=== PATIENT | female | born 1950 | race Caucasian/White ===

== ENCOUNTER 2016-07-27 09:34 | Emergency (ER) | payer OTHER, MEDICARE ==
[2016-07-27 10:38] VITALS: BP 145/72
--- NOTE | 2016-07-27 11:01 | UC ---
Complaint Female HPI - HPI Summary HPI Summary: 65 year old female with complaints of urgency, frequency and burning with urination x 3 days. Her symptoms were mild at the beginning, she increased her fluids and started drinking cranberry today her symptoms are worse. Denies nausea or vomiting, Denies fever or chills - History Of Current Complaint Chief Complaint: UCGU Stated Complaint: URINARY ISSUE Time Seen by Provider: 07/27/16 10:31 Hx Obtained From: Patient Hx Last Menstrual Period: menapause ?: No Onset/Duration: Gradual Onset, Lasting Days - 3, Still Present Timing: Constant Severity Initially: Mild Severity Currently: Moderate Pain Scale Used: 0-10 Numeric Character: Burning Aggravating Factor(s): Urination Associated Signs And Symptoms: Positive: Back Pain - low center. Negative: Fever, Vaginal Bleeding/Discharge, Vaginal Discharge, Nausea, Vomiting(# Of Episodes =), Genital Swelling, Genital Blisters Related Hx: Similar Episode/Dx as: - UTI 1 - 2 years ago - Risk Factors Ectopic Risk Factor: Negative Ovarian Torsion Risk Factor: Negative - Allergies/Home Medications Allergies/Adverse Reactions: Allergies Allergy/AdvReac Type Severity Reaction Status Date / Time Morphine AdvReac Intermediate Vomiting Verified 03/16/16 10:53 Ibuprofen AdvReac Unknown See Comment Verified 03/16/16 10:53 PMH/Surg Hx/FS Hx/Imm Hx Previously Healthy: Yes Endocrine History Of: Denies: Diabetes, Thyroid Disease Cardiovascular History Of: Reports: Cardiac Disorders - CAD, stent 06' Denies: Hypertension Respiratory History Of: Denies: COPD, Asthma GI/ History Of: Denies: Ulcer - Surgical History Surgical History: Yes Surgery Procedure, Year, and Place: ORTHOPEDIC SURGERY OF UNKNOWN NAME TO [facility] - Family History Known Family History: Positive: Hypertension Negative: Diabetes Family History: positive for hypertension on mother side - Social History Occupation: Retired Lives: With Family Alcohol Use: None Substance Use Type: None Smoking Status (MU): Former Smoker - Immunization History Most Recent Influenza Vaccination: utd Most Recent Tetanus Shot: utd Most Recent Pneumonia Vaccination: nopt sure Review of Systems Constitutional: Negative Skin: Negative Eyes: Negative ENT: Negative Respiratory: Negative Cardiovascular: Negative Gastrointestinal: Negative Genitourinary: Dysuria, Frequency, Urgency Motor: Negative Neurovascular: Negative Musculoskeletal: Negative Neurological: Negative Psychological: Negative All Other Systems Reviewed And Are Negative: Yes Physical Exam Triage Information Reviewed: Yes Appearance: Well-Appearing, No Pain Distress, Well-Nourished Vital Signs: Initial Vital Signs Temp 97.3 F 07/27/16 10:32 Pulse 74 07/27/16 10:32 Resp 16 07/27/16 10:32 BP 145/72 07/27/16 10:32 Pulse Ox 100 07/27/16 10:32 Vital Signs Reviewed: Yes Eyes: Positive: Conjunctiva Clear. Negative: Discharge ENT: Positive: Hearing grossly normal, Pharynx normal, Nasal congestion - reports x 4 days, TMs normal, Other: - no sinus pain or pressure with palpation. Negative: Nasal drainage Neck: Positive: Supple, Nontender, No Lymphadenopathy Respiratory: Positive: Lungs clear, Normal breath sounds Cardiovascular: Positive: RRR, No Murmur Abdomen Description: Positive: Nontender, No Organomegaly, Soft. Negative: CVA Tenderness (R), CVA Tenderness (L) Bowel Sounds: Positive: Present Musculoskeletal: Positive: Strength Intact, ROM Intact Neurological: Positive: Alert, Muscle Tone Normal Psychological: Positive: Normal Response To Family - granddaughter, Age Appropriate Behavior - pleasant and cooperative Skin: Negative: rashes, breakdown Complaint Female Dx - Course Course Of Treatment: UA -. Education about UTI symptoms and treatment. Treatment plan. And follow up plan established - Differential Dx/Diagnosis Differential Diagnosis/HQI/PQRI: Urinary Tract Infection Provider Diagnoses: UTI. Upper Respiratory Infection Discharge - Discharge Plan Condition: Stable Disposition: HOME Prescriptions: Ciprofloxacin TAB* [Cipro Tab*] 500 mg PO BID #14 tab Patient Education Materials: Urinary Tract Infection in Women (ED), Upper Respiratory Infection (ED), Ciprofloxacin (By mouth)
== END 2016-07-27 11:12 | disposition home or self-care (01) ==
LOC: UCEAST 09:34
DX: N39.0 Urinary tract infection, site not specified (principal); B96.89 Other specified bacterial agents as the cause of diseases classified elsewhere; J06.9 Acute upper respiratory infection, unspecified
CPT/HCPCS: 81002; 87077; 87086; 87186; 99212; G0463

== ENCOUNTER 2016-10-12 10:01 | Emergency (ER) | payer OTHER, MEDICARE ==
[2016-10-12 10:18] VITALS: BP 129/69
--- NOTE | 2016-10-12 10:45 | UC ---
Eye Complaint HPI - HPI Summary HPI Summary: Woke up yesterday with bilateral eye redness and drainage. States that her allergies have been worse with nasal congestion and drainage. Denies any fever or recent illness. No recent contact with sick individuals. - History of Current Complaint Chief Complaint: UCEye Stated Complaint: EYE COMPLAINT Time Seen by Provider: 10/12/16 10:23 Hx Obtained From: Patient Hx Last Menstrual Period: menapause Onset/Duration: Sudden Onset Severity Initially: Moderate Severity Currently: Moderate Location of Injury: Conjunctiva Aggravating Factor(s): Nothing Alleviating Factor(s): Nothing Associated Signs And Symptoms: Positive: Drainage (Purulent). Negative: Photophobia, Vision Impairment Bilateral, Fever Related History: Other - Worsening allergies - Risk Factors Penetrating Injury Risk Factor: Negative Globe Rupture Risk Factors: Negative Acute Glaucoma Risk Factors: Negative Optic Artery Occlusion Risk Factors: Negative - Allergies/Home Medications Allergies/Adverse Reactions: Allergies Allergy/AdvReac Type Severity Reaction Status Date / Time Morphine AdvReac Intermediate Vomiting Verified 10/12/16 10:25 Ibuprofen AdvReac Unknown See Comment Verified 10/12/16 10:25 Home Medications: Home Medications Fexofenadine (NF) [Nancy 180 (NF)] 180 mg PO DAILY 10/12/16 [History Confirmed 10/12/16] PMH/Surg Hx/FS Hx/Imm Hx Previously Healthy: Yes - Has had worsening seasonal allergies Endocrine History Of: Denies: Diabetes, Thyroid Disease Cardiovascular History Of: Reports: Cardiac Disorders - CAD, stent 06' Denies: Hypertension Respiratory History Of: Denies: COPD, Asthma GI/ History Of: Denies: Ulcer - Surgical History Surgical History: Yes Surgery Procedure, Year, and Place: ORTHOPEDIC SURGERY OF UNKNOWN NAME TO [facility]. gallbladder - Family History Known Family History: Positive: Hypertension Negative: Diabetes Family History: positive for hypertension on mother side - Social History Alcohol Use: None Substance Use Type: None Smoking Status (MU): Former Smoker When Did the Patient Quit Smoking/Using Tobacco: 20 years ago - Immunization History Most Recent Influenza Vaccination: utd Most Recent Tetanus Shot: utd Most Recent Pneumonia Vaccination: nopt sure Review of Systems Constitutional: Negative Skin: Negative Eyes: Drainage, Eye Redness ENT: Nasal Discharge Respiratory: Negative Cardiovascular: Negative Gastrointestinal: Negative Genitourinary: Negative Motor: Negative Neurovascular: Negative Musculoskeletal: Negative Neurological: Negative Psychological: Negative All Other Systems Reviewed And Are Negative: Yes Physical Exam Triage Information Reviewed: Yes Appearance: Well-Appearing, No Pain Distress, Well-Nourished Vital Signs: Initial Vital Signs Temp 99 F 10/12/16 10:14 Pulse 65 10/12/16 10:14 Resp 16 10/12/16 10:14 BP 129/69 10/12/16 10:14 Pulse Ox 98 10/12/16 10:14 Vital Signs Reviewed: Yes Eye Exam: Other Eyes: Positive: Conjunctiva Inflamed, Discharge - yellow, purulent ENT: Positive: Hearing grossly normal, Pharynx normal, Nasal congestion, Nasal drainage - clear, TMs normal. Negative: Pharyngeal erythema Neck exam: Normal Neck: Positive: Supple, Nontender, No Lymphadenopathy Respiratory Exam: Normal Respiratory: Positive: Chest non-tender, Lungs clear, Normal breath sounds, No respiratory distress Cardiovascular Exam: Normal Cardiovascular: Positive: RRR, No Murmur Musculoskeletal Exam: Normal Musculoskeletal: Positive: Strength Intact, ROM Intact Neurological Exam: Normal Neurological: Positive: Alert, Muscle Tone Normal Psychological Exam: Normal Psychological: Positive: Normal Response To Family Skin Exam: Normal Eye Complaint Course/Dx - Course Course Of Treatment: This is most likely an allergic conjunctivitis. She has had worsening allergies with increased nasal drainage and congestion. We have instructed her to use an [id number] steroid nasal spray and antihistamine eye drop. If her symptoms do not improve in two days, she is instructed to call back because she may need an antibiotic eye drop. - Differential Dx/Diagnosis Differential Diagnosis/HQI/PQRI: Conjunctivitis, Corneal Abrasion, Foreign Body Provider Diagnoses: Allergic Conjunctivitis Discharge - Discharge Plan Condition: Stable Disposition: HOME Patient Education Materials: Conjunctivitis (ED) Print Language: CAMBODIAN Referrals: Jessi Vigil MD [Primary Care Provider] - Additional Instructions: This is most likely an allergic conjunctivitis. Please use over the counter steroid nasal spray and antihistamine eye drops. If you do not see any improvement in 2 days, please call back.
== END 2016-10-12 10:55 | disposition home or self-care (01) ==
LOC: UCEAST 10:01
DX: H10.10 Acute atopic conjunctivitis, unspecified eye (principal); J30.2 Other seasonal allergic rhinitis; I25.10 Atherosclerotic heart disease of native coronary artery without angina pectoris; Z98.61 Coronary angioplasty status; Z87.891 Personal history of nicotine dependence
CPT/HCPCS: 99212; G0463

== ENCOUNTER 2016-10-13 11:34 | Emergency (ER) | payer OTHER, MEDICARE ==
[2016-10-13 12:25] VITALS: BP 104/35
--- NOTE | 2016-10-27 13:52 | UC ---
Nathan Welch SooYoung, scribed for Micaela Becerra DO on 10/13/16 at 1249 . Eye Complaint HPI - HPI Summary HPI Summary: A 66 y/o F presents to [facility] with worsening, bilat erythema of sclera onset two days ago. New erythema and swelling of skin around L eye onset this AM. Pt rates pain as 3 out of 10. No muscular eye pain, no pain when moving eyeballs. Denies fever, vision changes, CP, SOB, n/v. Pt was seen yesterday at [facility], dx: allergic conjunctivitis. - History of Current Complaint Chief Complaint: Eye Stated Complaint: POSSIBLE PINK EYE Time Seen by Provider: 10/13/16 12:31 Hx Obtained From: Patient Hx Last Menstrual Period: menapause Onset/Duration: Lasting Days, Still Present Timing: Constant Severity Initially: Mild Severity Currently: Mild Pain Intensity: 3 Pain Scale Used: 0-10 Numeric Location of Injury: Conjunctiva, Eye Lid (lower), Eye Lid (upper), Periorbital Associated Signs And Symptoms: Positive: Swelling - Allergies/Home Medications Allergies/Adverse Reactions: Allergies Allergy/AdvReac Type Severity Reaction Status Date / Time Morphine AdvReac Intermediate Vomiting Verified 10/12/16 10:25 Ibuprofen AdvReac Unknown See Comment Verified 10/12/16 10:25 PMH/Surg Hx/FS Hx/Imm Hx Endocrine History Of: Denies: Diabetes, Thyroid Disease Cardiovascular History Of: Reports: Cardiac Disorders - CAD, stent 06' Denies: Hypertension Respiratory History Of: Denies: COPD, Asthma GI/ History Of: Denies: Ulcer - Surgical History Surgical History: Yes Surgery Procedure, Year, and Place: ORTHOPEDIC SURGERY OF UNKNOWN NAME TO [facility] left ankle. gallbladder - Family History Known Family History: Positive: Hypertension Negative: Diabetes Family History: positive for hypertension on mother side - Social History Occupation: Disabled Lives: With Family Alcohol Use: None Substance Use Type: None Smoking Status (MU): Former Smoker When Did the Patient Quit Smoking/Using Tobacco: 20 years ago - Immunization History Most Recent Influenza Vaccination: utd Most Recent Tetanus Shot: utd Most Recent Pneumonia Vaccination: nopt sure Review of Systems Constitutional: Negative Skin: Other - pos: erythema and edema of skin surrounding L eye Eyes: Drainage, Eye Redness, Other - pos: eye pain and swelling ENT: Negative Respiratory: Negative Cardiovascular: Negative Gastrointestinal: Negative Genitourinary: Negative Motor: Negative Neurovascular: Negative Musculoskeletal: Negative Neurological: Negative Psychological: Negative All Other Systems Reviewed And Are Negative: Yes Physical Exam Triage Information Reviewed: Yes Appearance: Well-Appearing, No Pain Distress, Well-Nourished Vital Signs: Initial Vital Signs Temp 98.2 F 10/13/16 12:16 Pulse 54 10/13/16 12:16 Resp 18 10/13/16 12:16 BP 104/35 10/13/16 12:16 Pulse Ox 100 10/13/16 12:16 Vital Signs Reviewed: Yes Eyes: Positive: Conjunctiva Inflamed, Discharge - purulent, Other: - POS: preseptal erythema tenderness and edema around L much greater than R. NEG: ophthalmoplegia, proptosis-no swelling of the eyeball ENT: Positive: Hearing grossly normal. Negative: Muffled/hoarse voice Neck exam: Normal Neck: Positive: Supple Respiratory: Positive: Lungs clear, Normal breath sounds, No respiratory distress, No accessory muscle use Cardiovascular: Positive: RRR, No Murmur Musculoskeletal Exam: Normal Neurological: Positive: Alert, Muscle Tone Normal Psychological Exam: Normal Psychological: Positive: Age Appropriate Behavior Skin Exam: Normal, Other - pos: warm, dry, nml color Eye Complaint Course/Dx - Differential Dx/Diagnosis Differential Diagnosis/HQI/PQRI: Conjunctivitis, Periorbital Cellulitis, Other - allergic conjunctivitis Provider Diagnoses: periorbital cellulitis, conjunctivitis Discharge - Discharge Plan Condition: Stable Disposition: HOME Prescriptions: Clindamycin Cap(NF) [Cleocin 300 mg Cap(NF)] 300 mg PO TID #21 cap Tobramycin/Dexameth OPTH.SUSP* [Tobradex 0.3-0.1%*] 1 drop BOTH EYES Q4H #1 btl Patient Education Materials: Periorbital Cellulitis in Adults (ED), Conjunctivitis (ED) Referrals: Jessi Vigil MD [Primary Care Provider] - (Follow up in tomorrow for re -evaluation. This follow up visit is important, we want to know that you are improving. If you can not get in with your PCP, return here for re-evaluation. ) Additional Instructions: USE EYE DROPS DIRECTED. ANTIBIOTIC THERAPY: You have been given an antibiotic prescription. It's important that you take all the medication, unless instructed otherwise by your physician. Failure to complete the entire course can result in relapse of your condition. Common side effects of antibiotics include nausea, intestinal cramping, or diarrhea. Women may develop vaginal yeast infections, and babies can get yeast (thrush) in the mouth following the use of antibiotics. Contact your physician if you develop significant side effects from this medication. Allergy to this antibiotic can result in hives, wheezing, faintness, or itching. If symptoms of allergy occur, stop the medication and call the doctor. ANY TIME YOU TAKE AN ANTIBIOTIC, IT IS IMPORTANT TO REPLENISH THE BODY'S BALANCE OF "GOOD" BACTERIA BY EATING HIGH QUALITY CULTURED FOOD SUCH YOGURT, SAURKRAUT OR SONIDO CHI AND/OR TAKING A PROBIOTIC SUPPLEMENT. Follow up in day for re-evaluation. This follow up visit is important, we want to know that you are improving. If you can not get in with your PCP, return here for re-evaluation. The documentation as recorded by the Nathan martines SooYoung accurately reflects the service I personally performed and the decisions made by me, Micaela Becerra DO.
== END 2016-10-13 13:24 | disposition home or self-care (01) ==
LOC: UCEAST 11:34
DX: L03.213 Periorbital cellulitis (principal); H10.30 Unspecified acute conjunctivitis, unspecified eye; I25.10 Atherosclerotic heart disease of native coronary artery without angina pectoris; Z95.5 Presence of coronary angioplasty implant and graft; Z90.49 Acquired absence of other specified parts of digestive tract; Z88.6 Allergy status to analgesic agent; Z88.5 Allergy status to narcotic agent; Z87.891 Personal history of nicotine dependence
CPT/HCPCS: 99212; G0463

== ENCOUNTER 2016-12-24 15:16 | Emergency (ER) | payer MEDICARE ==
[2016-12-24 16:26] VITALS: BP 117/41
--- NOTE | 2016-12-24 16:58 | UC ---
Throat Pain/Nasal Rasta HPI - HPI Summary HPI Summary: Patient presents with complaints of increased post nasal drip, which she states is what occurs when she is getting a sinus infection, and as a result is nauseous. She states this typically happens at least once a year. She complains of facial pressure behind her eyes. She had difficulty breathing through her nose, and has a known deviated septum, but does not want to have sinus surgery. Denies fever, vomiting, headache. - History of Current Complaint Chief Complaint: UCRespiratory Stated Complaint: SINUS COMPLAINT Time Seen by Provider: 12/24/16 16:37 Hx Obtained From: Patient Hx Last Menstrual Period: post menopausal ?: No Onset/Duration: Gradual Onset, Lasting Days Severity: Moderate Cough: None - Epiglottits Risk Factors Epiglottis Risk Factors: Negative - Allergies/Home Medications Allergies/Adverse Reactions: Allergies Allergy/AdvReac Type Severity Reaction Status Date / Time Morphine AdvReac Intermediate Vomiting Verified 12/24/16 16:27 Ibuprofen AdvReac Unknown See Comment Verified 12/24/16 16:27 Home Medications: Home Medications Calcium [Oyster-Kirill 500] 500 mg PO DAILY 12/24/16 [History Confirmed 12/24/16] PMH/Surg Hx/FS Hx/Imm Hx Previously Healthy: Yes Endocrine History: Other - deviated septum sinusitis Other Endocrine History: deviates septum - Surgical History Surgical History: Yes Surgery Procedure, Year, and Place: ORTHOPEDIC SURGERY OF UNKNOWN NAME TO [facility] AND [facility]EMUR left ankle. gallbladder - Family History Known Family History: Positive: Hypertension Negative: Diabetes Family History: positive for hypertension on mother side - Social History Alcohol Use: None Substance Use Type: None Smoking Status (MU): Former Smoker When Did the Patient Quit Smoking/Using Tobacco: 20 years ago - Immunization History Most Recent Influenza Vaccination: utd Most Recent Tetanus Shot: utd Most Recent Pneumonia Vaccination: nopt sure Review of Systems ENT: Other - post nasal drip Gastrointestinal: Other - nausea Musculoskeletal: Other: - sinus pressure All Other Systems Reviewed And Are Negative: Yes Physical Exam Triage Information Reviewed: Yes Appearance: Well-Appearing Vital Signs: Initial Vital Signs Temp 97.4 F 12/24/16 16:23 Pulse 79 12/24/16 16:23 Resp 18 12/24/16 16:23 BP 117/41 12/24/16 16:23 Pulse Ox 98 12/24/16 16:23 Vital Signs Reviewed: Yes Eye Exam: Normal ENT: Positive: Other: - severe rightward deviated septum, turbinates pale, edematous. maxillary tenderness on palpation. +thick white pnd on posterior pharyngeal wall. -exudate noted. uvula raises midline on phonation. Neck exam: Normal Respiratory Exam: Normal Cardiovascular Exam: Normal Skin Exam: Normal Throat Pain/Nasal Course/Dx - Course Course Of Treatment: Patient presents with symptoms that are indicitive of her sinus infections with associated nausea. Rx Augmentin 500 mg po bid x 10 days, and zofran for nausea. Recommend follow up with ent for deviated septum. - Differential Dx/Diagnosis Differential Diagnosis/HQI/PQRI: Sinusitis Provider Diagnoses: sinusitis Discharge - Discharge Plan Condition: Stable Disposition: HOME Prescriptions: Amoxicillin/Clavulanate TAB* [Augmentin TAB 500 mg*] 500 mg PO BID #20 tab Ondansetron TAB* [Zofran 4 MG Tab*] 4 mg PO Q6H PRN #14 tab PRN Reason: Nausea Patient Education Materials: Sinusitis (ED) Referrals: Jessi Vigil MD [Primary Care Provider] - Sunny Lay MD [Medical Doctor] -
== END 2016-12-24 16:53 | disposition home or self-care (01) ==
LOC: UCEAST 15:16
DX: J32.9 Chronic sinusitis, unspecified (principal); J34.2 Deviated nasal septum; Z87.891 Personal history of nicotine dependence
CPT/HCPCS: 99201; G0463

== ENCOUNTER 2017-05-15 14:50 | Emergency (ER) | payer MEDICARE ==
[2017-05-15 15:54] VITALS: BP 105/61
--- NOTE | 2017-05-15 16:04 | UC ---
Respiratory Complaint HPI - HPI Summary HPI Summary: 66 year old female presents with complains of intermittent cough. - History of Current Complaint Chief Complaint: UCRespiratory Stated Complaint: cough Time Seen by Provider: 05/15/17 15:59 Hx Obtained From: Patient Hx Last Menstrual Period: post menopausal Onset/Duration: Sudden Onset Severity Initially: Moderate Severity Currently: Moderate Pain Scale Used: 0-10 Numeric - 0 - Allergies/Home Medications Allergies/Adverse Reactions: Allergies Allergy/AdvReac Type Severity Reaction Status Date / Time Morphine AdvReac Intermediate Vomiting Verified 12/24/16 16:27 Ibuprofen AdvReac Unknown See Comment Verified 12/24/16 16:27 PMH/Surg Hx/FS Hx/Imm Hx Previously Healthy: Yes - Surgical History Surgical History: Yes Surgery Procedure, Year, and Place: ORTHOPEDIC SURGERY OF UNKNOWN NAME TO [facility] AND FEMUR left ankle. gallbladder - Family History Known Family History: Positive: Hypertension Negative: Diabetes Family History: positive for hypertension on mother side - Social History Alcohol Use: None Substance Use Type: None Smoking Status (MU): Former Smoker When Did the Patient Quit Smoking/Using Tobacco: 20 years ago - Immunization History Most Recent Influenza Vaccination: utd Most Recent Tetanus Shot: utd Most Recent Pneumonia Vaccination: nopt sure Review of Systems Constitutional: Negative Skin: Negative Eyes: Negative ENT: Nasal Discharge Respiratory: Cough Cardiovascular: Negative Gastrointestinal: Negative Genitourinary: Negative Motor: Negative Neurovascular: Negative Musculoskeletal: Negative Neurological: Negative Psychological: Negative All Other Systems Reviewed And Are Negative: Yes Physical Exam Triage Information Reviewed: Yes Vital Signs: Initial Vital Signs Temp 35.5 C 05/15/17 15:45 Pulse 102 05/15/17 15:45 Resp 16 05/15/17 15:45 BP 105/61 05/15/17 15:45 Pulse Ox 100 05/15/17 15:45 Vital Signs Reviewed: Yes Eye Exam: Normal ENT: Positive: Pharyngeal erythema, Nasal drainage Dental Exam: Normal Neck exam: Normal Neck: Positive: 1 Cardiovascular Exam: Normal Abdominal Exam: Normal Musculoskeletal Exam: Normal Neurological Exam: Normal Psychological Exam: Normal Skin Exam: Normal UC Diagnostic Evaluation - Laboratory O2 Sat by Pulse Oximetry: 100 Respiratory Course/Dx - Differential Dx/Diagnosis Provider Diagnoses: cough. allergic rhinitis Discharge - Discharge Plan Condition: Stable Disposition: HOME Prescriptions: Amoxicillin PO (*) [Amoxicillin 500 MG CAP*] 500 mg PO TID #30 cap LoraTADine TAB(NF) [Claritin 10 MG TAB(NF)] 10 mg PO DAILY #30 tab Promethazine-Dm [Promethazine/Dextromethor 6.25-15 mg/5Ml] 1 teasp PO Q8H PRN # 120 ml PRN Reason: Cough Patient Education Materials: Acute Cough (ED) Referrals: Jessi Vigil MD [Primary Care Provider] -
== END 2017-05-15 16:11 | disposition home or self-care (01) ==
LOC: UCEAST 14:50
DX: R05 Cough (principal); J30.9 Allergic rhinitis, unspecified; Z88.6 Allergy status to analgesic agent
CPT/HCPCS: 99212; G0463

== ENCOUNTER 2017-08-23 10:59 | Emergency (ER) | payer SELFPAY ==
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
[2017-08-23 13:52] VITALS: BP 96/47
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
== END 2017-08-23 14:03 | disposition home or self-care (01) ==
LOC: UCEAST 10:59
DX: M54.2 Cervicalgia (principal); M54.5 Low back pain; M93.98 Osteochondropathy, unspecified other; E78.5 Hyperlipidemia, unspecified; I11.9 Hypertensive heart disease without heart failure; F32.9 Major depressive disorder, single episode, unspecified; Z90.49 Acquired absence of other specified parts of digestive tract; Z88.6 Allergy status to analgesic agent; Z88.5 Allergy status to narcotic agent; Z87.891 Personal history of nicotine dependence
CPT/HCPCS: 71046; 72020; 72050; 72100; 99212; G0463

== ENCOUNTER 2018-05-26 14:12 | Emergency (ER) | payer MEDICARE, OTHER ==
[2018-05-26 14:20] VITALS: BP 106/45
--- NOTE | 2018-05-26 14:30 | UC ---
Respiratory Complaint HPI - HPI Summary HPI Summary: 67 yo female presents with sinus pain/pressure/congestion for the last 3 days. This morning she began to have a productive cough. She tells me that she gets bronchitis often and it gets bad "quickly". She has not taken anything OTC for her symptoms. Denies fever, chills, sore throat, SOB, chest pain. - History of Current Complaint Chief Complaint: [facility] Stated Complaint: SORE THROAT,CONGESTED Time Seen by Provider: 05/26/18 14:29 Hx Obtained From: Patient Hx Last Menstrual Period: post menopausal Onset/Duration: Sudden Onset Severity Initially: Mild Severity Currently: Moderate Pain Intensity: 5 Pain Scale Used: 0-10 Numeric - Allergies/Home Medications Allergies/Adverse Reactions: Allergies Allergy/AdvReac Type Severity Reaction Status Date / Time ibuprofen Allergy Nausea Verified 05/26/18 14:20 morphine Allergy Vomiting Verified 05/26/18 14:20 PMH/Surg Hx/FS Hx/Imm Hx - Additional Past Medical History Additional PMH: Urinary incontinence Endocrine History: Dyslipidemia Cardiovascular History: Hypertension GI/ History: Gastroesophageal Reflux Psychological History: Anxiety, Depression - Surgical History Surgical History: Yes Surgery Procedure, Year, and Place: ORTHOPEDIC SURGERY OF UNKNOWN NAME TO [facility] AND FEMUR left ankle. gallbladder - Family History Known Family History: Positive: Hypertension Negative: Diabetes Family History: positive for hypertension on mother side - Social History Alcohol Use: None Substance Use Type: None Smoking Status (MU): Former Smoker When Did the Patient Quit Smoking/Using Tobacco: 20 years ago - Immunization History Most Recent Influenza Vaccination: utd Most Recent Tetanus Shot: utd Most Recent Pneumonia Vaccination: nopt sure Review of Systems Constitutional: Negative Skin: Negative Eyes: Negative ENT: Nasal Discharge, Sinus Congestion, Sinus Pain/Tenderness Respiratory: Cough Cardiovascular: Negative Gastrointestinal: Negative Genitourinary: Negative Neurovascular: Negative Neurological: Negative Psychological: Negative All Other Systems Reviewed And Are Negative: Yes Physical Exam - Summary Physical Exam Summary: GENERAL: NAD. WDWN. No pain distress. SKIN: No rashes, sores, lesions, or open wounds. HEENT: Head: AT/NC Eyes: EOM intact. Conjunctiva clear without inflammation or discharge. Ears: Hearing grossly normal. TMs intact, no bulging, erythema, or edema. Nose: Nasal mucosa mildly swollen and erythematous with yellow/ clear discharge. TTP maxillary and frontal sinus. Positive post nasal drip Throat: Posterior oropharynx without exudates, erythema, or tonsillar enlargement. Uvula midline. NECK: Supple. Nontender. No lymphadenopathy. CHEST: CTAB. No r/r/w. No accessory muscle use. Breathing comfortably and in no distress. CV: RRR. Without m/r/g. Pulses intact. NEURO: Alert. PSYCH: Age appropriate behavior. Triage Information Reviewed: Yes Vital Signs: Initial Vital Signs Temp 99 F 05/26/18 14:16 Pulse 65 05/26/18 14:16 Resp 18 05/26/18 14:16 BP 106/45 05/26/18 14:16 Pulse Ox 100 05/26/18 14:16 Vital Signs Reviewed: Yes Diagnostic Evaluation - Laboratory O2 Sat by Pulse Oximetry: 100 Respiratory Course/Dx - Course Course Of Treatment: Sinusitis - pt is requesting to be on anbx at this time - Differential Dx/Diagnosis Provider Diagnoses: Sinusitis Discharge - Sign-Out/Discharge Documenting (check all that apply): Patient Departure All imaging exams completed and their final reports reviewed: No Studies - Discharge Plan Condition: Stable Disposition: HOME Prescriptions: Amoxicillin PO (*) [Amoxicillin 500 MG CAP*] 500 mg PO Q12H #14 cap Patient Education Materials: Sinusitis (ED) Referrals: Jessi Vigil MD [Primary Care Provider] - Additional Instructions: If you develop a fever, shortness of breath, chest pain, new or worsening symptoms - please call your PCP or go to the ED. - Billing Disposition and Condition Condition: STABLE Disposition: Home
[2018-05-26] MEDS ORDERED: Acetaminophen TAB* 325 MG PO ONE (14:33)
== END 2018-05-26 14:45 | disposition home or self-care (01) ==
LOC: UCEAST 14:12
DX: J01.90 Acute sinusitis, unspecified (principal); Z87.891 Personal history of nicotine dependence; Z88.5 Allergy status to narcotic agent
CPT/HCPCS: 99212; A9270-GY; G0463

== ENCOUNTER 2018-12-31 16:29 | Observation (INO) | payer MEDICARE ==
[2018-12-31 17:07] LABS: ABS Basophils 0.1 10^3/ul (0-0.2); ABS Eosinophils 0.5 10^3/ul (0-0.6); ABS Lymphocytes 2.2 10^3/ul (1.0-4.8); ABS Monocytes 0.9 10^3/ul (0-0.8); ABS Neutrophils 3.5 10^3/ul (1.5-7.7); Eosinophil % 6.9 %; Hematocrit 38 % (35-47); Hemoglobin 12.6 g/dL (12.0-16.0); Lymphocyte % 30.8 %; Mean Corpuscular HGB Conc 33 g/dL (31-36); Mean Corpuscular Hemoglobin 31 pg (27-31); Mean Corpuscular Volume 92 fL (80-97); Mean Platelet Volume 9.3 fL (7.4-10.4); Platelet Count 225 10^3/uL (150-450); Red Blood Count 4.13 10^6 /uL (3.70-4.87); Red Cell Distribution Width 14 % (10-15); White Blood Count 7.1 10^3/uL (3.5-10.8)
[2018-12-31 17:14] LABS: INR 0.99 (0.82-1.09)
[2018-12-31 17:28] LABS: Albumin 3.9 g/dL (3.2-5.2); Albumin/Globulin Ratio 1.3 (1-3); BUN/Creatinine Ratio 16.5 (8-20); Calcium 9.9 mg/dL (8.6-10.3); EGFR African American 80.7 (>60); EGFR Non-African American 66.7 (>60); Globulin 3.1 g/dL (2-4); Potassium 4.6 mmol/L (3.5-5.0); Total Bilirubin 0.7 mg/dL (0.2-1.0)
--- NOTE | 2018-12-31 18:01 | ED ---
HPI Chest Pain - HPI Summary HPI Summary: Pt is a 68 y/o F presenting to the ED with a chief complaint of chest pain initially onset at 1300 today when she was just sitting on the couch. She states it was sudden onset and feels like she is being punched in the chest, at a 7/10. She reports associated SOB, nausea, and RAY after taking NTG. She denies vomiting, LE edema, or use of blood thinners. She took one NTG at home, and EMS gave 3 baby aspirin and another NTG. The NTG did not help the chest pain, but instead gave her a headache. - History of Current Complaint Chief Complaint: ED[facility]hestPain[facility]I Time Seen by Provider: 12/31/18 16:56 Hx Obtained From: Patient Hx Last Menstrual Period: post menopausal Onset/Duration: Started Hours Ago, Still Present Timing: Constant, Lasting Hours Initial Severity: Severe Current Severity: Severe Pain Intensity: 7 Pain Scale Used: 0-10 Numeric Chest Pain Location: Diffuse Chest Pain Radiates: No Character: Pressure/Squeezing - like someone is punching her Aggravating Factor(s): Nothing Alleviating Factor(s): Nothing Associated Signs and Symptoms: Positive: Chest Pain, Headaches, Shortness of Breath, Nausea. Negative: Vomiting, Edema - Allergy/Home Medications Allergies/Adverse Reactions: Allergies Allergy/AdvReac Type Severity Reaction Status Date / Time ibuprofen AdvReac Nausea Verified 12/31/18 20:51 morphine AdvReac Vomiting Verified 12/31/18 20:51 PMH/Surg Hx/FS Hx/Imm Hx Previously Healthy: Yes Endocrine/Hematology History: Denies: Hx Anticoagulant Therapy, Hx Diabetes, Hx Thyroid Disease Cardiovascular History: Denies: Hx Hypertension Respiratory History: Reports: Hx Asthma Denies: Hx Chronic Obstructive Pulmonary Disease (COPD) GI History: Denies: Hx Ulcer - Surgical History Surgery Procedure, Year, and Place: ORTHOPEDIC SURGERY OF UNKNOWN NAME TO [facility]EARM AND FEMUR left ankle. gallbladder - Immunization History Date of Tetanus Vaccine: up to date per pt. Infectious Disease History: No Infectious Disease History: Denies: Hx Clostridium Difficile, Hx Hepatitis, Hx Human Immunodeficiency Virus (HIV), Hx of Known/Suspected MRSA, Hx Shingles, Hx Tuberculosis, Hx Known/ Suspected VRE, Hx Known/Suspected VRSA, History Other Infectious Disease, Traveled Outside the [place] in Last 30 Days - Family History Known Family History: Positive: Cardiac Disease, Hypertension Negative: Diabetes Family History: positive for hypertension on mother side - Social History Alcohol Use: None Hx Substance Use: No Substance Use Type: Reports: None Hx Tobacco Use: No Smoking Status (MU): Former Smoker Review of Systems Positive: Chest Pain Positive: Shortness Of Breath Positive: Nausea. Negative: Vomiting Negative: Edema Positive: Headache All Other Systems Reviewed And Are Negative: Yes Physical Exam - Summary Physical Exam Summary: Constitutional: Well-developed, Well-nourished, Alert. (-) Distressed Skin: Warm, Dry HENT: Normocephalic; Atraumatic Eyes: Conjunctiva normal Neck: Musculoskeletal ROM normal neck. (-) JVD, (-) Stridor, (-) Tracheal deviation Cardio: Rhythm regular, rate normal, Heart sounds normal; Intact distal pulses; The pedal pulses are 2+ and symmetric. Radial pulses are 2+ and symmetric. Pulmonary/Chest wall: Effort normal. (-) Respiratory distress, (-) Wheezes, (-) Rales Abd: Soft, (-) tenderness, (-) Distension, (-) Guarding, (-) Rebound Musculoskeletal: (-) Edema Neuro: Alert, Oriented x3 Psych: Mood and affect Normal Triage Information Reviewed: Yes Vital Signs On Initial Exam: Initial Vitals Temp Pulse Resp BP Pulse Ox 99.2 F 55 14 110/59 98 12/31/18 16:34 12/31/18 16:34 12/31/18 16:34 12/31/18 16:34 12/31/18 16:34 Vital Signs Reviewed: Yes Diagnostics - Vital Signs Vital Signs Temp Pulse Resp BP Pulse Ox 12/31/18 16:34 99.2 F 55 14 110/59 98 - Laboratory Lab Results: Lab Results 12/31/18 12/31/18 12/31/18 Range/Units 16:43 16:43 16:43 WBC 7.1 (3.5-10.8) 10^3/uL RBC 4.13 (3.70-4.87) 10^6 /uL Hgb 12.6 (12.0-16.0) g/dL Hct 38 (35-47) % MCV 92 (80-97) fL MCH 31 (27-31) pg MCHC 33 (31-36) g/dL RDW 14 (10-15) % Plt Count 225 (150-450) 10^3/uL MPV 9.3 (7.4-10.4) fL Neut % (Auto) 49.5 % Lymph % (Auto) 30.8 % [place] % (Auto) 12.0 % Eos % (Auto) 6.9 % Baso % (Auto) 0.8 % Absolute Neuts (auto) 3.5 (1.5-7.7) 10^3/ul Absolute Lymphs (auto) 2.2 (1.0-4.8) 10^3/ul Absolute Monos (auto) 0.9 H (0-0.8) 10^3/ul Absolute Eos (auto) 0.5 (0-0.6) 10^3/ul Absolute Basos (auto) 0.1 (0-0.2) 10^3/ul Absolute Nucleated RBC 0.0 10^3/ul Nucleated RBC % 0.0 INR (Anticoag Therapy) 0.99 (0.82-1.09) Sodium 141 (135-145) mmol/L Potassium 4.6 (3.5-5.0) mmol/L Chloride 108 (101-111) mmol/L Carbon Dioxide 26 (22-32) mmol/L Anion Gap 7 (2-11) mmol/L BUN 14 (6-24) mg/dL Creatinine 0.85 (0.51-0.95) mg/dL Est GFR ( Amer) 80.7 (>60) Est GFR (Non-Af Amer) 66.7 (>60) BUN/Creatinine Ratio 16.5 (8-20) Glucose 99 (70-100) mg/dL Calcium 9.9 (8.6-10.3) mg/dL Total Bilirubin 0.70 (0.2-1.0) mg/dL AST 27 (13-39) U/L ALT 18 (7-52) U/L Alkaline Phosphatase 86 (34-104) U/L Troponin I 0.00 (<0.04) ng/mL Total Protein 7.0 (6.4-8.9) g/dL Albumin 3.9 (3.2-5.2) g/dL Globulin 3.1 (2-4) g/dL Albumin/Globulin Ratio 1.3 (1-3) Result Diagrams: 12/31/18 16:43 12/31/18 16:43 Lab Statement: Any lab studies that have been ordered have been reviewed, and results considered in the medical decision making process. - Radiology CXR Radiology Interpretation Completed By: ED Physician Summary of Radiographic Findings: No acute process, pending official radiology report. - EKG 1635 Cardiac Rate: Bradycardia - 49bpm EKG Rhythm: Sinus Bradycardia ST Segment: Normal Ectopy: None Summary of EKG Findings: EKG at 1635 shows sinus bradycardia at 49bpm with no STEMI. Chest Pain Course/Dx - Course Course Of Treatment: Pt is a 68 y/o F presenting to the ED with a chief complaint of chest pain initially onset at 1300 today when she was just sitting on the couch. She states it was sudden onset and feels like she is being punched in the chest, at a 7/10. She reports associated SOB, nausea, and RAY after taking NTG. She denies vomiting, LE edema, or use of blood thinners. She took one NTG at home, and EMS gave 3 baby aspirin and another NTG. The NTG did not help the chest pain, but instead gave her a headache. CXR shows no acute process, pending official radiology report. EKG at 1635 shows sinus bradycardia at 49bpm with no STEMI. Pt will be admitted to [facility] with dx of chest pain for further cardiac workup, under Dr. Raman. - Diagnoses Provider Diagnoses: Chest pain Discharge - Sign-Out/Discharge Documenting (check all that apply): Patient Departure - Discharge Plan Condition: Stable Disposition: ADMITTED TO [facility] - Billing Disposition and Condition Condition: STABLE Disposition: Admitted to [facility] - Attestation Statements Document Initiated by Deepibe: Yes Documenting Scribe: Yudith Barreto Provider For Whom Matty is Documenting (Include Credential): Rashel Johnson MD. Scribe Attestation: Yudith Welch scribed for Rashel Johnson MD. on 01/14/19 at 0538. Scribe Documentation Reviewed: Yes Provider Attestation: The documentation as recorded by the scribe, Yudith Barreto accurately reflects the service I personally performed and the decisions made by me, Rashel Johnson MD. Status of Scribe Document: Viewed
[2018-12-31] MEDS ORDERED: Famotidine IV * 20 MG in NS 0.9% 100 ML* 100 ML IVPB ONE (18:22)
[2018-12-31] MEDS ORDERED: Ondansetron INJ* 2 MG/ML VIAL IV ONE (18:22)
[2018-12-31] MEDS ORDERED: Famotidine IV* 10 MG/ML 2 ML (20 mg) IV ONE (19:00)
[2018-12-31] MEDS ORDERED: Lactated Ringers 1000 ML Bag* 1,000 ML IV ONE (19:00)
[2018-12-31] MEDS ORDERED: Magnesium Hydroxide LIQ* 30 ML UDC PO PRN (20:34)
[2018-12-31] MEDS ORDERED: Ondansetron INJ* 2 MG/ML VIAL IV PRN (20:34)
[2018-12-31] MEDS ORDERED: Albuterol 2.5 MG/3 ML NEB.SOL* (0.083%) INH PRN (20:34)
[2018-12-31] MEDS ORDERED: Acetaminophen TAB* 325 MG PO PRN (20:34)
[2018-12-31] MEDS ORDERED: Ketorolac INJ* 30 MG/ML 1 ML VIAL IV PUSH PRN (20:42)
[2018-12-31] MEDS: Heparin VIAL(*) 5000 UNITS/ML VIAL (FIVE THOUSAND) SUBCUT SCH (22:15)
[2018-12-31] MEDS: Metoprolol Tartrate TAB* 50 mg PO SCH (22:48)
[2018-12-31] MEDS ORDERED: Atorvastatin* 80 MG TAB PO SCH (23:00)
[2018-12-31] MEDS ORDERED: Aspirin EC TAB* 81 MG TAB.EC PO SCH (23:00)
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
[2019-01-01] MEDS: Heparin VIAL(*) 5000 UNITS/ML VIAL (FIVE THOUSAND) SUBCUT SCH (05:32)
[2019-01-01] MEDS: Metoprolol Tartrate TAB* 50 mg PO SCH (08:11)
--- NOTE | 2019-01-01 09:31 | ECHO ---
*[facility]* [place] [address] Fax #: [phone] Transthoracic Echocardiogram Patient: Debi, Height: 59 in / Poppy Ribera 149.9 cm : 1950 Weight: 129.7 lb / Study Date: 01/01/2019 59 kg Age: 68 BP: 90 / 55 Gender: F BMI/BSA: 26.3 kg/m^2 HR: 54 bpm / 1.54 m^2 *Clinique Counter Manager: * Suyapa Gonzalez [facility] *Referring Physician: Taniya Guerrier *Reading Physician: * Warren Rodriguez MD History: Coronary artery disease. Risk factors: Hypertension. Former smoker. Conclusions Summary: 1. Left ventricle: The cavity size is normal. Systolic function is normal. The estimated ejection fraction is 55-60%. Wall motion is normal; there are no regional wall motion abnormalities. 2. Normal cardiac chamber sizes. 3. Functionally benign heart valves. 4. Since the prior echocardiogram completed 09/29/05, there is no significant change. Study data: Transthoracic echocardiogram. Procedure: Transthoracic echocardiography was performed. Image quality was good. Complete 2D, spectral Doppler, and color flow Doppler. Patient status: Inpatient. Patient room number: 453. Rhythm: Bradycardia. Findings Left ventricle: Well visualized. The cavity size is normal. Systolic function is normal. The estimated ejection fraction is 55-60%. Wall motion is normal; there are no regional wall motion abnormalities. Left ventricular diastolic function parameters are normal. Right ventricle: Well visualized. The cavity size is normal. Systolic function is normal. Ventricular septum: Well visualized. Left atrium: Well visualized. The atrium is normal in size. Right atrium: Well visualized. The atrium is normal in size. Atrial septum: Well visualized. Mitral valve: Well visualized. The leaflets are mildly thickened. No echocardiographic evidence for prolapse. There is trace regurgitation. Aortic valve: Well visualized. The valve is trileaflet. The leaflets are normal thickness. There is no evidence of stenosis. There is no significant regurgitation. Tricuspid valve: Well visualized. The leaflets are normal thickness. There is trace to mild regurgitation. No pulmonary hypertension with estimated pulmonary artery systolic pressusr of 31 mm Hg. Pulmonic valve: Well visualized. The leaflets are normal thickness. There is no evidence of stenosis. There is trace regurgitation. Aorta: The aorta is well visualized and normal size. Aortic arch: The aortic arch is appears normal. The aortic root is not dilated. Pericardium: There is no pericardial effusion. Pulmonary arteries: Not very well visualized. Systemic veins: Not well visualized. Pulmonary veins: Well visualized. Measurements Left ventricle Value Ref Aortic valve Value Ref DENNIS, LAX (L) 3.7 cm 3.8 - Sushila diam, ED 1.7 cm ----- 5.2 Sushila diam/bsa, ED 1.1 cm/m^2 ----- ESD, LAX 2.8 cm 2.2 - Peak v, S 1.26 m/sec ----- 3.5 VTI, S 33.8 cm ----- FS, LAX (L) 24 % - 45 Mean grad, S 4.0 mm Hg ----- PW, ED, LAX 0.9 cm 0.6 - Peak grad, S 6.0 mm Hg ----- 0.9 LVOT/AV, VTI ratio 0.7 ----- FS (L) 24 % - 45 Mid-wall FS 11 % -------- Mitral valve Value Ref PW, ED 0.9 cm 0.6 - Peak E 0.89 m/sec ----- 0.9 Peak A 0.65 m/sec ----- PW/ID, ED 0.24 -------- Decel time 239 ms ----- E', lat sushila, TDI 11.7 cm/sec >=10.0 Peak grad, D 3.2 mm Hg -- --- E/e', lat sushila, TDI 8 -------- Peak E/A ratio 1.4 ----- E', med sushila, TDI 7.4 cm/sec >=7.0 E/e', med sushila, TDI 12 -------- Pulmonic valve Value Ref E', avg, TDI 9.6 cm/sec -------- Peak v, S 0.7 m/sec ----- E/e', avg, TDI 9 <=14 Peak grad, S 2.0 mm Hg -- --- LVOT Value Ref Tricuspid valve Value Ref Peak raj, S 0.85 m/sec -------- TR peak v 2.39 m/sec <=2.8 VTI, S 23.6 cm -------- Peak RV-RA grad, S 23 mm Hg ----- Mean grad, S 2 mm Hg -------- Max TR raj 2.39 m/sec ----- Ventricular septum Value Ref Aortic root Value Ref IVS, ED (H) 1.0 cm 0.6 - Root diam 2.8 cm <3.8 0.9 Root max diam, ED 2.8 cm <3.8 Right ventricle Value Ref Ascending aorta Value Ref DENNIS, LAX 2.8 cm -------- AAo AP diam, S 2.8 cm ----- DENNIS minor ax, A4C 3.0 cm 1.9 - AAo AP diam/bsa, S 1.8 cm/m^2 ----- mid 3.5 Aortic arch Value Ref Left atrium Value Ref Arch diam 1.9 cm ----- ML dim, A4C 3.3 cm -------- SI dim, A4C 5.3 cm -------- Vol/bsa, ES, 1-p 25 ml/m^2 11 - 40 A4C Vol/bsa, ES, A/L 32 ml/m^2 16 - 34 Right atrium Value Ref SI dim, ES 4.0 cm 3.4 - 5.3 ML dim, ES, A4C 3.0 cm 2.6 - 4.4 SI dim, ES, A4C 4.0 cm 3.4 - 5.3 SI dim/bsa, ES, A4C 2.6 cm/m^2 1.9 - 3.1 Estimated RAP 8 mm Hg -------- Legend: (L) and (H) clara values outside specified reference range. Prepared and electronically signed by Warren Rodriguez MD 01/01/2019 09:30
[2019-01-01] MEDS ORDERED: Calcium Carbonate TAB* 1250 MG (CALCIUM 500 MG) PO SCH (10:15)
[2019-01-01] MEDS ORDERED: Aminophylline IV* 25 MG/ML 10 ML VIAL ONE (10:38)
[2019-01-01] MEDS ORDERED: Regadenoson* 0.4 MG/5 ML SYRINGE ONE (10:38)
[2019-01-01] MEDS ORDERED: Cetirizine* 10 MG TAB PO SCH (11:00)
[2019-01-01] MEDS ORDERED: Sertraline* 100 MG TAB PO SCH (11:00)
[2019-01-01] MEDS ORDERED: Pantoprazole TAB * 40 MG TAB PO SCH (11:00)
[2019-01-01] MEDS ORDERED: Fluticasone NASAL SPRAY 50MCG* 16 gm SPRAY BTL BOTH NARES SCH (11:00)
[2019-01-01 12:16] VITALS: BP 103/44
[2019-01-01] MEDS ORDERED: Oxybutynin TAB* 5 MG PO SCH (12:30)
[2019-01-01] MEDS ORDERED: Enalapril TAB* 5 MG PO SCH (21:00)
--- NOTE | 2019-01-01 23:37 | DS ---
CC: Dr. Vigil * DISCHARGE SUMMARY: DATE OF ADMISSION: 12/31/18 DATE OF DISCHARGE: 01/01/19 ATTENDING PHYSICIAN: Zhang Plunkett MD * (dictated by ANNABELLE Luis). PRIMARY CARE PROVIDER: Dr. Vigil. PRIMARY DIAGNOSES: 1. Costochondritis. 2. Subacute left rib fractures. SECONDARY DIAGNOSES: 1. Coronary artery disease. 2. Hypertension. STUDIES WHILE IN THE HOSPITAL: Echocardiogram on 01/01/19; left ventricle is normal size, estimated ejection fraction 55% to 60%, wall motion normal, no regional wall motion abnormalities, benign heart valve, normal chamber sizes, and no diastolic dysfunction. Chest x-ray on 12/31/18, no active cardiopulmonary disease is noted. On 12/31/18, left ribs x-ray, impression: Multiple probable subacute left rib fractures with early healing response. On 01/01/19, regular stress test, no evidence for stress-induced ischemia or presence of an infarct. Low risk. PERTINENT LAB DATA: Troponin 0.00. DISCHARGE MEDICATIONS: Ibuprofen 800 mg p.o. t.i.d. x5 days. Continued home medications: 1. Oxybutynin 5 mg p.o. daily. 2. Loratadine 10 mg p.o. daily. 3. Atorvastatin 80 mg p.o. daily. 4. Metoprolol tartrate 50 mg p.o. b.i.d. 5. Fluticasone 2 sprays both nares daily. 6. Enalapril 2.5 mg p.o. at bedtime. 7. Calcium 500 mg p.o. daily. 8. Aspirin 81 mg p.o. daily. 9. Multivitamin 1 cap p.o. daily. 10. Sertraline 100 mg p.o. daily. 11. Pantoprazole 40 mg p.o. daily. 12. Fish oil 1 cap p.o. daily. HISTORY OF PRESENT ILLNESS/HOSPITAL COURSE: Poppy Carrera is a 68-year-old white female with past medical history of coronary artery disease with IN in 2005 and hypertension, who presented to the emergency department on 12/31/18 complaining of chest wall pain. Please see history and physical admission note dictated by Taniya Her NP, on day of admission. During her hospital stay, she had normal electrocardiogram and stress test. She did continue to have central chest pain, but this was reproducible on exam. The patient noted that the day prior to admission she was working in the garden doing a lot of weeding, which is likely the cause of this musculoskeletal chest pain. Additionally, the patient fell approximately a month ago without head trauma and did not tell any of her family members or report to seek medical care. On the date of discharge, the patient does have chest pain centrally. She denies associated difficulty breathing or shortness of breath, fever, chills, abdominal pain, nausea, vomiting. No neck or jaw pain or radiating arm pain at the time of evaluation. REVIEW OF SYSTEMS: A 12-point review of systems was completed and all pertinent positives and negatives are above in the HPI. All other systems are negative. PHYSICAL EXAMINATION: General: Obese white female, lying in hospital bed, appearing in no acute distress. Head: Normocephalic, atraumatic. Eyes: PERRL. Sclerae anicteric. ENT: Mucous membranes moist. Neck: Supple without JVD. Lungs: Clear to auscultation throughout. Cardio: Regular rate and rhythm without murmurs, rubs, or gallops. Reproducible chest pain to the lower half of the sternum, additionally just lateral to the sternum on the left side in approximately fourth intercostal space. Abdomen: Normoactive bowel sounds x4 quadrants. Abdomen is soft, nontender, nondistended without hepatosplenomegaly. Extremities: No cyanosis, clubbing, or edema. Neuro: The patient is alert and oriented x3. No focal deficits. Able to move all extremities. No tremors. Skin: Skin is warm, dry, and intact. DISCHARGE PLAN: Diet: Heart healthy diet. Activity: The patient is to return to normal activity as tolerated. The patient is advised to take ibuprofen, but advised to return to emergency department if she is experiencing black or bloody stools due to combination with aspirin. Additionally, the patient was advised to return to the emergency department if she is experiencing chest pain, difficulty breathing, loss of consciousness. Otherwise, the patient is to return to her normal home medications. She is advised to follow up with her primary care provider in 10 days regarding this hospitalization. She was notified that the rib fractures were likely due to her fall a month ago and it have already began healing. CONDITION ON DISCHARGE: Stable. DISPOSITION: Home. TIME SPENT: Approximately 45 minutes was spent on this discharge, approximately half of the time was spent at the bedside. ANNABELLE LUIS [id number]/CPS #: [id number] MTDD
== END 2019-01-01 14:00 | disposition home or self-care (01) ==
LOC: ED 16:29 → MEDTELE 20:34
PROVIDERS: ADMIT Nurse Practitioner Adult Health; ATTEND Internal Medicine
DX: M94.0 Chondrocostal junction syndrome [Tietze] (principal); S22.42XA Multiple fractures of ribs, left side, initial encounter for closed fracture; W50.0XXA Accidental hit or strike by another person, initial encounter; Y92.9 Unspecified place or not applicable; Z87.891 Personal history of nicotine dependence; I25.10 Atherosclerotic heart disease of native coronary artery without angina pectoris; I10 Essential (primary) hypertension; Z79.82 Long term (current) use of aspirin; Z79.899 Other long term (current) drug therapy; R51 Headache
CPT/HCPCS: 36415; 71045; 78452; 80053; 84484; 85025; 85610; 93005; 93017; 93306; 96365; 96372; 96375; 99285; A9270-GY; A9502; G0378; J0280; J1644; J1885; J2405; J2785

== ENCOUNTER 2019-05-14 11:12 | Observation (INO) | payer MEDICARE ==
--- OUTSIDE RECORDS SUMMARY | 2019-05-14 11:22 | XMS REPORT | Summary of Care ---
:1950 Author Organization [facility] Address [address] [facility] [place] [address] Care Team Providers Name Role Phone Jessi Vigil Primary Care Provider Reason for Visit Reason Comments Medicare Well Visit physical, Dr. Juan Pablo madison, pt is on antibotic for upper respitory infection Encounter Details Date Type Department Care Team Description 04/[facility] MD Jessi wellness visit, [address] [facility] subsequent ([place] [address] [place] [address] Dx) [phone] Allergies Active Allergy Reactions Severity Noted Date Comments Morphine Other, GI Reaction 04/15/2011 documented as of this encounter (statuses as of 04/27/2019) Medications Medication Sig Dispensed Refills Start End Date Status Date aspirin (ECOTRIN) 81 Take 81 mg by 0 Active mg Oral Tab EC mouth DAILY. OMEGA-3 FATTY ACIDS Take 1,200 mg by mouth TWICE DAILY. Two tabs qhs 0 Active (FISH OIL) 1200 MG Oral Cap calcium Take 1 Tab by 0 Active carbonate-vitamin D mouth DAILY. (CALCIUM 600 + D) 600-400 MG-UNIT Oral Tab fluticasone SPRAY 2 SPRAYS 3 Bottle 1 Active (FLONASE) 50 MCG/ACT IN EACH 6 Nasal Suspension NOSTRIL DAILY sucralfate TAKE 1 TABLET 360 Tab 1 Active (CARAFATE) 1 GM Oral FOUR TIMES 7 TabIndications: DAILY Gastroesophageal reflux disease without esophagitis fluticasone (FLOVENT Take 2 Puffs 1 Inhaler 1 Active HFA) 110 MCG/ACT by inhalation 7 Inhalation Aerosol TWICE DAILY. metoprolol TAKE 1 TABLET 180 Tab 1 Active (LOPRESSOR) 50 MG BY MOUTH 8 Oral Tab TWICE A DAY nitroglycerin Place 1 Tab 25 Tab 1 Active (NITROSTAT) 0.4 MG under tongue 9 Sublingual SL Tab EVERY FIVE MINUTES NEEDED for chest pain. sertraline (ZOLOFT) TAKE 2 TABLETS 180 Tab 1 Active 100 MG Oral Tab BY MOUTH EVERY 9 DAY atorvastatin Take 1 Tab by 90 Tab 1 Active (LIPITOR) 80 MG Oral mouth DAILY. 9 Tab oxybutynin Take 1 Tab by 180 Tab 1 Active (DITROPAN) 5 MG Oral mouth TWICE 9 Tab DAILY. enalapril (VASOTEC) Take 1 Tab by 90 Tab 1 Active 2.5 MG Oral Tab mouth DAILY. 9 pantoprazole Take 1 Tab by 90 Tab 1 Active (PROTONIX) 40 MG mouth DAILY. 9 Oral Tab ECIndications: Gastroesophageal reflux disease, esophagitis presence not specified albuterol HFA Take 2 Puffs 3 Inhaler 1 Active (PROAIR HFA) 108 (90 by inhalation 9 Base) MCG/ACT EVERY FOUR Inhalation Aero Soln HOURS NEEDED (for SOB). amoxicillin-clavulan TAKE 1 TABLET 0 Active ic acid (AUGMENTIN) BY MOUTH TWICE 9 875-125 MG Oral Tab DAILY FOR 7 DAYS Levocetirizine Take by mouth 0 Active Dihydrochloride DAILY. (XYZAL) 5 MG Oral Tab Loratadine Take 10 mg by 0 04/27/20 Discontinued (CLARITIN) 10 MG mouth DAILY AT 19 Oral Cap 1400. PROAIR HFA 108 (90 INHALE 2 PUFFS 3 Inhaler 1 04/27/20 Discontinued Base) MCG/ACT EVERY FOUR 8 19 (Reorder) Inhalation Aero Soln HOURS NEEDED FOR SHORTNESS OF BREATH Quetiapine Fumarate Take 1 Tab by 90 Tab 1 04/27/20 Discontinued (SEROQUEL) 50 MG mouth EVERY 9 19 Oral Tab BEDTIME. ciprofloxacin Take 1 Tab by 10 Tab 0 04/27/20 Discontinued (CIPRO) 250 MG Oral mouth TWICE 9 19 Tab DAILY. documented as of this encounter (statuses as of 04/27/2019) Active Problems Problem Noted Date Mass of thigh 06/04/2013 Hypertension 08/31/2012 Rib fractures 05/26/2012 Femur fracture 05/26/2012 Open skull fracture 05/26/2012 Subdural hematoma 05/26/2012 Brain contusion 05/26/2012 Facial bone fracture 05/26/2012 Pelvic fracture 05/26/2012 Multiple trauma 05/26/2012 Mild TBI (traumatic brain injury) 05/25/2012 Overview: No loss of consciousness CAD (coronary artery disease) 07/02/2008 Overview: Stent placed 2005 Back problem 07/02/2008 Overview: Chronic hyperlipidemia Osteoporosis documented as of this encounter (statuses as of 04/27/2019) Immunizations Name Administration Dates Next Due Depo Medrol (80mg) 01/06/2015 Influenza (IM) Preservative Free 04/09/2018, 04/12/2015, 04/15/2013, 04/15/2011 Influenza Vaccine High Dose 04/18/2017 Influenza Vaccine Whole 05/07/2016 PNEUMOCOCCAL POLYSACCHARIDE VACCINE 04/10/2018, 04/09/2018, 05/07/2013 Pneumococcal Conjugate(13 Valent) 10/07/2016 TDAP Vaccine 02/15/2015 ZOSTER (ZOSTAVAX) VACCINE 10/20/2011 documented as of this encounter Social History Tobacco Use Types Packs/Day Years Used Date Former Smoker Quit: 11/08/2003 Smokeless Tobacco: Never Used Alcohol Use Drinks/Week oz/Week Comments No 0 Standard drinks or equivalent 0.0 Sex Assigned at Date Recorded Not on file Job Start Date Occupation Industry Not on file Not on file Not on file Travel History Travel Start Travel End No recent travel history available. documented as of this encounter Last Filed Vital Signs Vital Sign Reading Time Taken Comments Blood Pressure 102/60 04/27/2019 1:09 PM EDT Pulse 55 04/27/2019 1:09 PM EDT Temperature 37.2 04/27/2019 1:09 PM EDT C (98.9 F) Respiratory Rate - - Oxygen Saturation 98% 04/27/2019 1:09 PM EDT Inhaled Oxygen Concentration - - Weight 65.3 kg (144 lb) 04/27/2019 1:09 PM EDT Height 149.9 cm (4' 11") 04/27/2019 1:09 PM EDT Body Mass Index 29.08 04/27/2019 1:09 PM EDT documented in this encounter Patient Instructions Patient InstructionsJessi Vigil MD - 04/27/2019 1:00 PM EDT1. Follow up in 2 weeks for Flu shot documented in this encounter Progress Notes Jessi Vigil MD - 04/27/2019 1:00 PM EDT PATIENT: Poppy Carrera : 1950 DATE OF SERVICE: 04/27/2019 OBJECTIVE: Subjective Poppy Carrera is a 68-y.o. female who presents for a Medicare Wellness Visit. Poppy Carrera States that her current providers and suppliers regularly involved in providing medical care are Dr. Polk. 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) 05/26/12 Seasonal allergies summer and fall Family History Problem Relation Age of Onset Heart Mother High Cholesterol Mother Hypertension Mother Arthritis Mother Heart Disease Mother Clotting Disorder Mother Heart Father Heart Disease Father Clotting Disorder Father Heart Brother Heart Disease Brother Heart Brother Heart Disease Brother Anesth Problems No family history Cancer No family history Diabetes No family history Kidney Disease No family history Thyroid Disease No family history Current Outpatient Medications Medication Sig albuterol HFA (PROAIR HFA) 108 (90 Base) MCG/ACT Inhalation Aero Soln Take 2 Puffs by inhalation EVERY FOUR HOURS NEEDED (for SOB). amoxicillin-clavulanic acid (AUGMENTIN) 875-125 MG Oral Tab TAKE 1 TABLET BY MOUTH TWICE DAILY FOR 7 DAYS aspirin (ECOTRIN) 81 mg Oral Tab EC Take 81 mg by mouth DAILY. atorvastatin (LIPITOR) 80 MG Oral Tab Take 1 Tab by mouth DAILY. calcium carbonate-vitamin D (CALCIUM 600 + D) 600-400 MG-UNIT Oral Tab Take 1 Tab by mouth DAILY. enalapril (VASOTEC) 2.5 MG Oral Tab Take 1 Tab by mouth DAILY. fluticasone (FLONASE) 50 MCG/ACT Nasal Suspension SPRAY 2 SPRAYS IN EACH NOSTRIL DAILY fluticasone (FLOVENT HFA) 110 MCG/ACT Inhalation Aerosol Take 2 Puffs by inhalation TWICE DAILY. Loratadine (CLARITIN) 10 MG Oral Cap Take 10 mg by mouth DAILY AT 1400. metoprolol (LOPRESSOR) 50 MG Oral Tab TAKE 1 TABLET BY MOUTH TWICE A DAY nitroglycerin (NITROSTAT) 0.4 MG Sublingual SL Tab Place 1 Tab under tongue EVERY FIVE MINUTES NEEDED for chest pain. OMEGA-3 FATTY ACIDS (FISH OIL) 1200 MG Oral Cap Take 1,200 mg by mouth TWICE DAILY. Two tabs qhs oxybutynin (DITROPAN) 5 MG Oral Tab Take 1 Tab by mouth TWICE DAILY. pantoprazole (PROTONIX) 40 MG Oral Tab EC Take 1 Tab by mouth DAILY. Quetiapine Fumarate (SEROQUEL) 50 MG Oral Tab Take 1 Tab by mouth EVERY BEDTIME. sertraline (ZOLOFT) 100 MG Oral Tab TAKE 2 TABLETS BY MOUTH EVERY DAY sucralfate (CARAFATE) 1 GM Oral Tab TAKE 1 TABLET FOUR TIMES DAILY No current facility-administered medications for this visit. Allergies Allergen Reactions Morphine Other and GI Reaction Social History Socioeconomic History Marital status: Spouse name: Not on file Number of children: Not on file Years of education: Not on file Highest education level: Not on file Occupational History Not on file Social Needs Financial resource strain: Not on file Food insecurity: Worry: Not on file Inability: Not on file Transportation needs: Medical: Not on file Non-medical: Not on file Tobacco Use Smoking status: Former Smoker Last attempt to quit: 11/08/2003 Years since quittin.4 Smokeless tobacco: Never Used Substance and Sexual Activity Alcohol use: No Alcohol/week: 0.0 standard drinks Drug use: No Sexual activity: Never Lifestyle Physical activity: Days per week: Not on file Minutes per session: Not on file Stress: Not on file Relationships Social connections: Talks on phone: Not on file Gets together: Not on file Attends judaism service: Not on file Active member of club or organization: Not on file Attends meetings of clubs or organizations: Not on file Relationship status: Not on file Intimate partner violence: Fear of current or ex partner: Not on file Emotionally abused: Not on file Physically abused: Not on file Forced sexual activity: Not on file Other Topics Concern Back Care Not Asked Bike Helmet Not Asked Blood Transfusions Not Asked Caffeine Concern Not Asked Exercise Not Asked Hobby Hazards Not Asked International Travel Not Asked Service Not Asked Occupational Exposure Not Asked Seat Belt Not Asked Self-Exams Not Asked Sleep Concern Not Asked Special Diet Not Asked Stress Concern Not Asked Weight Concern Not Asked Social History Narrative Not on file BP 102/60 (BP Location: Left arm, Patient Position: Sitting) | Pulse 55 | Temp 98.9 F (37.2 C) | Ht 4' 11" (1.499 m) | Wt 144 lb (65.3 kg) | SpO2 98% | BMI 29.08 kg/m [facility] Eye Exam Results: . Health Risk Assessment What is your age? 68-y.o. Are you male or female? female What is your Race? During the past four weeks, how would you rate your health? Very Good Do you require help to perform your personal needs such as eating, bathing, dressing, or getting around the house? no Can you go shopping for groceries or clothes without someone's help? yes Can you do your housework without help? yes Can you prepare your own meals? yes Do you have trouble taking medications as prescribed? no Can you handle your own money and finances without help? yes During the past four weeks, was someone available to help you if you needed and wanted help (for example, someone to talk to, help with daily chores, etc.)? Yes , as much as I wanted How Confident are you that you can control and manage most of your health problems? Very Confident During the past four weeks, what was the hardest physical activity you could do for at least 2 minutes? Heavy (like jogging or swimming) Do you exercise for about 20 minutes 3 or more days a week? yes Do any of these things cause you stress? None During the past four weeks, how much bodily pain have you had? No pain In general, are you satisfied with the quality of your life? yes On a typical day, how many servings of fruits and vegetables do you eat? 3 or more How many servings of high fat foods do you eat per day (example, fried chicken, potato chips, foods made with milk, cream cheese or mayonnaise)? 0-1 Do you receive assistance with meals such as meals on wheels or help from friends, family, or neighbors? no Do you have teeth or denture problems? no Date of last dental cleaning/check up: dentures How often do you use your seat belt? Always During the past four weeks, how many drinks of beer, wine, or other alcoholic beverages have you had? None at all Date of last eye exam: 6 months ago Name of call center professional: [employer] Functional Ability, Level of Safety Are you deaf or do you have serious difficulty hearing?: No Are you blind or do you have serious difficulty seeing, even when wearing glasses?: No Do you have serious difficulty concentrating, remembering, or making decisions? : No Do you have serious difficulty walking or climbing stairs? (5 years old or older ): No Do you have difficulty dressing or bathing? (5 years old or older): No Do you have difficulty doing errands alone such as visiting a doctors office or shopping?: No Seen over the weekend at [facility] with complains of nasal congestion, sore throat, cough Started on Augmentin for sinus infection Objective: BP 102/60 (BP Location: Left arm, Patient Position: Sitting) Pulse 55 Temp 98.9 F (37.2 C) Ht 4' 11" (1.499 m) Wt 144 lb (65.3 kg) SpO2 98% BMI 29.08 kg/m2 GENERAL: alert, no distress HEAD: normocephalic, without obvious abnormality EYES: conjunctivae/corneas clear. Pupils equal, round, reactive to light. Equal ocular movements intact. EARS: normal tympanic membranes and external ear canals, bilaterally NOSE: Mild nasal congestion No sinus tenderness. THROAT: lips, mucosa, and tongue normal: teeth and gums normal NECK: supple, symmetrical, trachea midline, no adenopathy and thyroid: not enlarged, symmetric, notenderness/mass/nodules BACK: negative LUNGS: clear to auscultation bilaterally BREASTS: normal appearance, no masses or tenderness HEART: regular rate and rhythm, S1, S2 normal, no murmur, click, rub or gallop ABDOMEN: soft, non-tender. Bowel sounds normal. No masses, no organomegaly EXTREMITIES: extremities normal, atraumatic, no cyanosis or edema PULSES: 2+ and symmetric SKIN: Skin color, texture, turgor normal. No rashes or suspicious lesions. LYMPH NODES: cervical, supraclavicular, and axillary nodes normal. NEUROLOGIC: Grossly normal ICD-9-CM ICD-10-CM 1. Medicare annual wellness visit, subsequent V70.0 Z00.00 EPSDT VISUAL SCREEN Patient Instructions 1. Follow up in 2 weeks for Flu shot Patient needs to be scheduled for Reclast infusion Author: Jessi Vigil MD 04/27/2019 13:17 documented in this encounter Plan of Treatment Health Maintenance Due Date Last Done Comments ZOSTER IMMUNIZATION SERIES 12/15/2011 10/20/2011 (2 of 3) INFLUENZA VACCINE (#1) 2019 04/09/2018, 04/18/2017, 05/07/2016, Additional history exists DIABETES SCREENING 09/22/2019 09/21/2018, 08/07/2018, 02/06/2018, Additional history exists DEPRESSION SCREENING 01/15/2020 01/14/2019 FALL RISK ASSESSMENT 01/15/2020 01/14/2019, 01/14/2019 LIPID DISORDER SCREENING 03/10/2020 03/10/2019, 12/21/2018, 09/21/2018, Additional history exists MAMMOGRAM (SCREENING) 03/10/2020 03/10/2019, 02/06/2018, 10/10/2016, Additional history exists MEDICARE ANNUAL WELLNESS 04/27/2020 04/27/2019, 10/07/2016, VISIT 10/07/2016, Additional history exists COLONOSCOPY SCREENING 04/15/2021 04/15/2011 (Postponed) OSTEOPOROSIS SCREENING 10/10/2026 10/10/2016, 03/18/2014, 03/04/2012 PNEUMOCOCCAL 65+YRS Completed 04/10/2018, 04/09/2018, 10/07/2016, Additional history exists HPV IMMUNIZATION SERIES Aged Out No longer eligible based on patient's age to complete this topic MENINGOCOCCAL VACCINE IMM Aged Out No longer eligible based on patient's age to complete this topic documented as of this encounter Goals Goal Patient Goal Associated Recent Patient-Stated? Author Type Problems Progress Blood Pressure Blood Pressure Hypertension 102/60 No Musa, < 140/90 (04/27/2019 Jessi, 1:09 PM EDT) Note: Hypertension Care Plan Based on the patient's clinical history and according to JNC 8 guidelines target blood pressure goal is less than 140/90. Based on the patient's last blood pressure of BP: 112/64 mmHg the patient is at at goal. As your provider, it is important that I advise you regarding: your current medications and help you with any challenges you may face taking your medications as directed (ex. instructions, cost, side effects, and interactions). Important lifestyle changes: exercise and dietary sodium reduction your clinical goals and how you can achieve success: exercise plan and diet improvements medication management: adjusted medications as appropriate patient education/self-management tools provided: Yes To successfully manage my Hypertension I will: monitor my blood pressure daily, understanding that my goal is less than 140/ 90 per my healthcare provider's recommendation. I will schedule an appointment with my provider if consistent abnormal readings greater than 160/100. take medications every day as prescribed by my healthcare provider and if unable to take them I will discuss with my provider. monitor for symptoms of chest pain, chest tightness/pressure, irregular heartbeat, persistent dizziness, radiating arm pain, and neck or jaw pain. If any of these symptoms are noticed I will seek medical attention immediately by calling 911 exercise/walk 30 minutes 5 day(s) per week. If I experience chest pain, chest tightness, or shortness of breath, I will seek medical attention immediately. follow a diet rich in fruits, vegetables, and low-fat dairy products with reduced content of saturated & total fat. I will reduce my sodium intake daily. An example is the DASH diet. To obtain more information please refer to the DASH Eating Plan listed in Educational Resources. record my blood pressure results. Johan is safe and secure way for you to do this in your medical record online. limit alcohol consumption. For men two drinks per day and women one drink per day. if currently smoking, will discuss how to quit smoking with my healthcare provider and work towards quitting. Educational Resources: National Heart, Lung, & Blood [place] http://nhlbi.nih.gov/hbp/index.html The DASH Diet Eating Plan http://www.nhlbi.nih.gov/health/health-topics/ topics/dash/ Academy of Nutrition & DIetetics http://eatright.org National Smoking Cessation Site http://smokefree.gov Blood Pressure < Blood Pressure 102/60 (04/27/2019 No Jessi Vigil, 150/90 1:09 PM EDT) Note: This is an individualized treatment (blood pressure) goal for Poppy Carrera: Displayed above (on the left) is your goal for blood pressure control. Your most recent blood pressure is also shown above, on the right. You should try to achieve blood pressures that are lower than your goal listed above (on the left). Depression screen (PHQ-9) total score < 5 Depression No Jessi Vigil MD Note: This is an individualized treatment (depression) goal for Poppy Carrera: Displayed above is your goal for a depression screening (PHQ-9) score that would indicate good control of your depression. Keep a regular sleep schedule Lifestyle No Jessi Vigil MD Note: This is an individualized lifestyle goal for Poppy Carrera: Please maintain a regular sleep schedule. This may help with some symptoms of depression. Take all prescribed medications as Self-management No Jessi Vigil MD directed Note: This is an individualized self-management goal for Poppy Carrera: Please take all prescribed medications as directed. 1. Do not skip doses. If you cannot afford your medications, talk with your doctor. 2. Use a pill reminder system such as a pill box if needed. Your pharmacist can help you with this. 3. Contact your Pharmacy 5 days before your medication runs out. If you cannot take your medications for any reasons, talk with your doctor. 4. Please bring all of your medication bottles and inhalers (or a list of all your medications/inhalers) with you to every visit. Potential barriers to meeting all of your care plan goals will continue to be addressed on an ongoing basis. documented as of this encounter Implants Implanted Type Area Electrolysis Needle Operator Device Shelf Model / Identifier Expiration Serial / Lot Date Screw, 814 Ss 3.5 Self-Tap - [id number] Left: [employer] L[employer]. 814 / Implanted: Qty: 1 on 05/25/2012 at [facility]) / N/A Progenix Putty Dbm 1cc - [id number] Left: TOR SWEET [id number] / Implanted: Qty: 1 on 05/25/2012 at [facility] / [id number] Plate, 223.621 3.5 Lcp 12h 163 - [id number] Left: [employer]ain[employer]. 223.621 / Implanted: Qty: 1 on 05/25/2012 at [facility]) / [id number] Plate, 223.591 3.5 Lcp 9h 124m - [id number] Left: [employer]. 223.591 / Implanted: Qty: 1 on 05/25/2012 at [facility]) / [id number] Screw 212.[address] - [id number] Left: [employer]. 212.102 / Implanted: Qty: 1 on 05/25/2012 at [facility]) / N/A Screw 212.103 3[address] - [id number] Left: [employer]ain[employer]. 212.103 / Implanted: Qty: 2 on 05/25/2012 at [facility]) / N/A Screw 212.104 3[address] - [id number] Left: [employer]. 212.104 / Implanted: Qty: 1 on 05/25/2012 at [facility]) / N/A Screw 212.104 3[address] - [id number] Left: Ulna Herotainment, [employer]. 212.104 / Implanted: Qty: 4 on 05/25/2012 at [facility]) / N/A Screw 212.105 3[address] - [id number] Left: Ulna [employer]. 212.105 / Implanted: Qty: 2 on 05/25/2012 at [facility]) / N/A Screw 212.103 [address] - [id number] Left: Ulna [employer]. 212.103 / Implanted: Qty: 2 on 05/25/2012 at [facility]) / N/A Screw, 204.665 Manish 3.5x65 - [id number] Left: Leg [employer]TH[employer]. 204.665 / Implanted: Qty: 1 on 05/26/2012 at [facility]) / N/A Screw, 212.210 5.0x32 Lock Sta - [id number] Left: Leg [employer]TH[employer]TD. 212.210 / Implanted: Qty: 2 on 05/26/2012 at [facility] ([facility]) / N/A Screw, 212.211 5.0x34 Lock Sta - [id number] Left: Leg Herotainment, [employer]. 212.211 / Implanted: Qty: 1 on 05/26/2012 at [facility]) / N/A Screw, 212.222 5.0x65 Lock Sta - [id number] Left: Leg Herotainment[employer] LTD. 212.222 / Implanted: Qty: 1 on 05/26/2012 at [facility] ([facility]) / N/A Washer 219.98 7.0mm - [id number] Left: [id number], LTD. 219.98 / Implanted: Qty: 1 on 05/26/2012 at [facility]) / N/A Screw, 204.860 Ss 3.5 Self-Tap - [id number] Left: Go800, [employer]. 204.860 / Implanted: Qty: 1 on 05/26/2012 at [facility]) / N/A 4.5mm Va Lcp Curved Condylar Plate 12 Hole Left: [employer]. 124.413 / Implanted: Qty: 1 on 05/26/2012 at [facility] ([facility]) / 5.0mm Va Locking Screws 32mm Left: Leg [employer]otain[employer], [employer]TD. .232 / Implanted: Qty: 2 on 05/26/2012 at [facility] ([facility]) / 5.0mm Va Locking Screw 20mm Left: Leg [employer]ain[employer], [employer]. .220 / Implanted: Qty: 1 on 05/26/2012 at [facility] ([facility]) / 5.0mm Va Locking Screw 55mm Left: Leg [employer]ain[employer], [employer]. 231.255 / Implanted: Qty: 1 on 05/26/2012 at [facility] ([facility]) / Va Locking Screw 60mm Left: Leg [employer]ain[employer], L[employer]. .260 / Implanted: Qty: 1 on 05/26/2012 at [facility] ([facility]) / Va Locking Screw 70mm Left: Leg [employer]. 231.270 / Implanted: Qty: 2 on 05/26/2012 at [facility] ([facility]) / Va Locking Screw 75mm Left: Leg [employer], L[employer]. 231.275 / Implanted: Qty: 1 on 05/26/2012 at [facility]) / Infuse Large - [id number] Left: TOR SWEET [id number] / Implanted: Qty: 1 on 09/09/2012 at [facility] Femur / [id number] Crushed Cancellous Bone 30cc - [id number] Left: [facility] BONE / Implanted: Qty: 1 on 09/09/2012 at [facility] Femur / [id number] Crushed Cancellous Bone 30cc - [id number] Left: [facility] BONE / Implanted: Qty: 1 on 09/09/2012 at [facility] / [id number] Crushed Cancellous Bone 30cc - [id number] Left: [facility] BONE / Implanted: Qty: 1 on 09/09/2012 at [facility] / [id number] Screw, 212.206 5.0x24 Lock Sta - [id number] Left: [employer], LTD. 212.206 / Implanted: Qty: 1 on 09/09/2012 at [facility] ([facility]) / N/A Plate, 226.601 Broad Lcp 10-H - [id number] Left: [employer] 226.601 / Implanted: Qty: 1 on 09/09/2012 at [facility]) / [id number] Screw, 212.210 5.0x32 Lock Sta - [id number] Left: [employer] 212.210 / Implanted: Qty: 1 on 09/09/2012 at [facility] ([facility]) / N/A Screw, 212.214 5.0x40 Lock Sta - [id number] Left: [employer] 212.214 / Implanted: Qty: 1 on 09/09/2012 at [facility] ([facility]) / N/A Screw, 214.832 4.5x32 Self Tap - [id number] Left: [employer] 214.832 / Implanted: Qty: 1 on 09/09/2012 at [facility] ([facility]) / N/A Screw, 212.215 5.0x42 Lock Sta - [id number] Left: [employer] 212.215 / Implanted: Qty: 1 on 09/09/2012 at [facility] ([place]) / N/A documented as of this encounter Procedures Procedure Name Priority Date/Time Associated Diagnosis Comments EPSDT VISUAL SCREEN Routine 04/27/2019 1:14 PM Medicare annual Results for this EDT wellness visit, procedure are in subsequent the results section. documented in this encounter Results EPSDT VISUAL SCREEN (04/27/2019 1:14 PM EDT) Vision Corrected? y [facility] Visual Acuity (Right) n [facility] Visual Acuity (Left) n [facility] Visual Acuity (Both) 20/40 [facility] Color Vision n [facility] (Norml/Abnormal/NA) Specimen Performing Organization Address City/State/Zipcode Phone Number [facility] [address] [place] [address] documented in this encounter Visit Diagnoses Diagnosis Medicare annual wellness visit, subsequent - Primary Routine general medical examination at a health care facility documented in this encounter Insurance Payer Benefit Plan / Subscriber ID Effective Dates Phone Address Type Group AETNA MEDICARE AETNA MEDICARE xxxxxxxx 2018-Present [employer] ADVANTAGE ADVANTAGE documented as of this encounter
--- NOTE | 2019-05-14 11:24 | ED ---
HPI Chest Pain - HPI Summary HPI Summary: The patient is a 68 y/o F arriving by ambulance to [facility] with a chief complaint of stabbing left anterior chest pain that woke her up at 0900 this morning as it radiated into the jaw with tingling in her lips. She took one nitroglycerin to no relief, so she called EMS who reported that the patient had a blood pressure reading of 60/30 mmHg and was given a bolus of fluid to improve the pressure. She was also administered 324mg aspirin and one dose of nitroglycerin , but she states her pain is still rated 10/10 in severity in the ED. She additionally c/o shortness of breath. She notes she had a cardiology appointment last week which was negative for any significant abnormalities. She is unsure of her last stress test. PMHx: angina, CAD, PA with cardiac stent 2005 , asthma, chronic bronchitis, PNA. FHx: cardiac disease, HTN. Former smoker, no EtOH, no substance use. Medications reviewed. Allergies noted. - History of Current Complaint Time Seen by Provider: 05/14/19 11:13 Hx Obtained From: Patient Hx Last Menstrual Period: post menopausal Onset/Duration: Started Hours Ago, Still Present Time of Onset: 09:00 Timing: Lasting Hours Initial Severity: Severe Current Severity: Severe Pain Intensity: 10 Pain Scale Used: 0-10 Numeric Chest Pain Location: Left Anterior Chest Pain Radiates: Yes Chest Pain Radiates To:: Jaw Character: Sharp/Stabbing Aggravating Factor(s): Nothing Alleviating Factor(s): Nothing - NTG and ASA to no relief Associated Signs and Symptoms: Positive: Chest Pain, Tingling - in lips, Shortness of Breath - Additional Pertinent History Primary Care Physician: RILEY - Allergy/Home Medications Allergies/Adverse Reactions: Allergies Allergy/AdvReac Type Severity Reaction Status Date / Time ibuprofen AdvReac Nausea Verified 12/31/18 20:51 morphine AdvReac Vomiting Verified 12/31/18 20:51 Home Medications: Home Medications Albuterol HFA INHALER* [Ventolin HFA Inhaler*] 2 puff INH Q4H PRN 05/14/19 [ History Confirmed 05/14/19] Aspirin EC TAB* [Ecotrin EC Low Dose 81 MG*] 81 mg PO DAILY 05/14/19 [History Confirmed 05/14/19] Calcium Carbonate/Vitamin D3 [Calcium 600 + Vit D Tablet] 1 tab PO DAILY [History Confirmed 05/14/19] Fluticasone HFA 110 mcg(NF) [Flovent HFA 110 mcg(NF)] 2 puff INH BID 05/14/19 [ History Confirmed 05/14/19] LevoCETirizine TAB (NF) [Xyzal TAB (NF)] 5 mg PO DAILY 05/14/19 [History Confirmed 05/14/19] Nitroglycerin TAB 0.4 MG* 0.4 mg SL Q5M PRN 05/14/19 [History Confirmed 05/14/19 ] [place]-3S/Dha/Epa/Fish Oil [Fish Oil 1,200 mg Softgel] 2 cap PO BEDTIME 05/14/19 [History Confirmed 05/14/19] QUEtiapine TAB* [Seroquel 25 MG TAB*] 50 mg PO DAILY 05/14/19 [History Confirmed 05/14/19] Sertraline* [Zoloft*] 200 mg PO DAILY 05/14/19 [History Confirmed 05/14/19] PMH/Surg Hx/FS Hx/Imm Hx Endocrine/Hematology History: Denies: Hx Anticoagulant Therapy, Hx Diabetes, Hx Thyroid Disease Cardiovascular History: Reports: Hx Angina, Hx Coronary Artery Disease, Hx Myocardial Infarction Denies: Hx Hypercholesterolemia, Hx Hypertension Respiratory History: Reports: Hx Asthma, Hx Chronic Bronchitis, Hx Pneumonia Denies: Hx Chronic Obstructive Pulmonary Disease (COPD) GI History: Denies: Hx Ulcer Sensory History: Reports: Hx Contacts or Glasses Denies: Hx Hearing Aid Opthamlomology History: Reports: Hx Contacts or Glasses Psychiatric History: Reports: Hx Depression - Surgical History Surgical History: Yes Surgery Procedure, Year, and Place: ORTHOPEDIC SURGERY OF UNKNOWN NAME TO [facility] left ankle. gallbladder - Immunization History Date of Tetanus Vaccine: up to date per pt. Infectious Disease History: Denies: Hx Clostridium Difficile, Hx Hepatitis, Hx Human Immunodeficiency Virus (HIV), Hx of Known/Suspected MRSA, Hx Shingles, Hx Tuberculosis, Hx Known/ Suspected VRE, Hx Known/Suspected VRSA, History Other Infectious Disease - Family History Known Family History: Positive: Cardiac Disease, Hypertension Negative: Diabetes Family History: positive for hypertension on mother side - Social History Alcohol Use: None Hx Substance Use: No Substance Use Type: Reports: None Hx Tobacco Use: No Smoking Status (MU): Former Smoker Review of Systems Positive: Chest Pain - left anterior Positive: Shortness Of Breath Positive: Other - jaw pain Neurological: Other - tingling in lips All Other Systems Reviewed And Are Negative: Yes Physical Exam - Summary Physical Exam Summary: VITAL SIGNS: Reviewed. GENERAL: Patient is a well-developed and nourished female who is lying comfortable in the stretcher. Patient is not in any acute respiratory distress. HEAD AND FACE: No signs of trauma. No ecchymosis, hematomas or skull depressions. No sinus tenderness. EYES: PERRLA, EOMI x 2, No injected conjunctiva, no nystagmus. EARS: Hearing grossly intact. Ear canals and tympanic membranes are within normal limits. MOUTH: Oropharynx within normal limits. NECK: Supple, trachea is midline, no adenopathy, no JVD, no carotid bruit, no c- spine tenderness, neck with full ROM. CHEST: Symmetric, mild reproducible tenderness at palpation. LUNGS: Clear to auscultation bilaterally. No wheezing or crackles. CVS: Regular rate and rhythm, S1 and S2 present, no murmurs or gallops appreciated. ABDOMEN: Soft, non-tender. No signs of distention. No rebound, no guarding, and no masses palpated. Bowel sounds are normal. EXTREMITIES: FROM in all major joints, no edema, no cyanosis or clubbing. NEURO: Alert and oriented x 3. No acute neurological deficits. Speech is normal and follows commands. SKIN: Dry and warm Triage Information Reviewed: Yes Vital Signs Reviewed: Yes Procedures - Sedation Patient Received Moderate/Deep Sedation with Procedure: No Diagnostics - Laboratory Result Diagrams: 05/14/19 11:39 05/14/19 11:39 Lab Statement: Any lab studies that have been ordered have been reviewed, and results considered in the medical decision making process. - Radiology Chest X-Ray Radiology Interpretation Completed By: Radiologist Summary of Radiographic Findings: Impression: No active cardiopulmonary disease. ED physician has reviewed this report. - EKG 1118 Cardiac Rate: NL - 60 BPM EKG Rhythm: Sinus Rhythm Summary of EKG Findings: EKG at 1118 reveals normal sinus rhythm at [address] elevations. ED physician has reviewed and interpreted this EKG. 1512 Cardiac Rate: NL - 68 BPM EKG Rhythm: Sinus Rhythm EKG Comparison: No Significant Change - Similar to previous. Summary of EKG Findings: EKG at 1512 reveals sinus rhythm at [address] elevations. ED physician has reviewed this report. Re-Evaluation - Re-Evaluation First Eval Re-Evaluation Time: 14:00 Change: Improved Comment: The patient states an allergy to Morphine so she was given [place] without any reaction. Pain has improved. Second Eval Re-Evaluation Time: 15:30 Change: Unchanged Comment: Patient is still experiencing pain. Chest Pain Course/Dx - Course Assessment/Plan: Patient is a 68 y/o F arriving by ambulance with chief complaint of waking up this morning at 0900 with stabbing left anterior chest pain radiating into the jaw and accompanied by tingling of the lips and shortness of breath. She self-administered nitroglycerin to no relief, and she was also given aspirin and nitroglycerin in the ambulance. Her BP was 60/30 mmHg en route so she was additionally give a bolus of fluids. Blood test results without any significant abnormality except for glucose of 112. Troponin is 0.01. EKG shows a normal sinus rhythm without ST elevations. The patients chest pain is reproducible. Patient has had a stress test on 12/30/18, and it was found to be normal. I held the Nitroglycerin, BB, and Morphine since patient is hypotensive. Patient was given IV fluids. Blood pressure has slightly increased; however, after a few hours the blood pressure also decreases. Patient was given Toradol for the pain without any improvement in symptoms. She was given Percocet, and the patients pain slightly improved. However, now she is complaining of chest pain again. Repeat EKG: NSR w/o ST elevations. I discussed my physical exam and test results with Dr. Lopez from the hospitalist services, and he agrees to admit the patient to his services. Patient is hemodynamically stable alert and oriented x 3. - Diagnoses Provider Diagnoses: Chest pain, Hypotension - Provider Notifications Discussed Care Of Patient With: Rony Lopez - hospitalist Time Discussed With Above Provider: 15:50 Instructed by Provider To: Other - I discussed the patient's case with Dr. Lopez who accpets the patient for admission. Discharge ED - Sign-Out/Discharge Documenting (check all that apply): Patient Departure - Patient accepted for admission by Dr. Lopez. - Discharge Plan Condition: Stable Disposition: HOME - Billing Disposition and Condition Condition: STABLE Disposition: Home - Attestation Statements Document Initiated by Matty: Yes Documenting Scribe: Talia Carrasco Provider For Whom Matty is Documenting (Include Credential): Dr. Johnny Murphy MD Scribe Attestation: ITalia scribed for Dr. Johnny Murphy MD on 05/14/19 at 1857. Scribe Documentation Reviewed: Yes Provider Attestation: The documentation as recorded by the Talia martines accurately reflects the service I personally performed and the decisions made by me, Dr. Johnny Murphy MD Status of Matty Document: Viewed
[2019-05-14 11:46] LABS: ABS Eosinophils 0.2 10^3/ul (0-0.6); ABS Monocytes 0.9 10^3/ul (0-0.8); ABS Neutrophils 6.4 10^3/ul (1.5-7.7); Hematocrit 36 % (35-47); Hemoglobin 12.1 g/dL (12.0-16.0); Mean Corpuscular HGB Conc 34 g/dL (31-36); Mean Corpuscular Hemoglobin 31 pg (27-31); Mean Corpuscular Volume 93 fL (80-97); Mean Platelet Volume 8.9 fL (7.4-10.4); Platelet Count 184 10^3/uL (150-450); Red Blood Count 3.88 10^6 /uL (3.70-4.87); Red Cell Distribution Width 13 % (10-15); White Blood Count 8.5 10^3/uL (3.5-10.8)
[2019-05-14 11:59] LABS: Activated Partial Thrombo Time 30.7 seconds (26.0-38.0); INR 0.98 (0.82-1.09)
[2019-05-14 12:07] LABS: Troponin I 0.01 ng/mL (<0.04)
[2019-05-14 12:31] LABS: Albumin 3.8 g/dL (3.2-5.2); Albumin/Globulin Ratio 1.3 (1-3); BUN/Creatinine Ratio 22.4 (8-20); Calcium 9.1 mg/dL (8.6-10.3); EGFR African American 91.8 (>60); EGFR Non-African American 75.9 (>60); Potassium 4.4 mmol/L (3.5-5.0); Total Bilirubin 0.5 mg/dL (0.2-1.0); Total Protein 6.8 g/dL (6.4-8.9)
[2019-05-14] MEDS ORDERED: Ketorolac INJ* 30 MG/ML 1 ML VIAL IV ONE (12:46)
[2019-05-14 13:33] LABS: TSH (Thyroid Stimulating Horm) 3.63 mcIU/mL (0.34-5.60)
[2019-05-14] MEDS ORDERED: NS 0.9% 1000 ML** 1,000 ML IV ONE ×2 (13:47→15:32)
[2019-05-14] MEDS ORDERED: HYDROcodone/ACETAMIN 5-325 MG* 1 TAB PO ONE (14:01)
[2019-05-14 16:56] LABS: Urine Appearance Clear; Urine Bacteria Absent (Absent); Urine Bilirubin Negative (Negative); Urine Blood Negative (Negative); Urine Color Straw; Urine Glucose Negative (Negative); Urine Ketones Negative (Negative); Urine Nitrite Negative (Negative); Urine Protein Negative (Negative); Urine Red Blood Cell Absent (Absent); Urine Specific Gravity 1.009 (1.010-1.030); Urine Squamous Epithelial Cell Present (Absent); Urine Urobilinogen Negative (Negative); Urine White Blood Cell Trace(0-5/hpf) (Absent)
[2019-05-14] MEDS ORDERED: Acetaminophen TAB* 325 MG PO ONE (17:06)
[2019-05-14] MEDS ORDERED: methylPREDNISolone 125 MG* 2 ML VIAL IV ONE (17:15)
[2019-05-14] MEDS ORDERED: NS 0.9% 1000 ML** 1,000 ML IV SCH (17:15)
[2019-05-14] MEDS ORDERED: Ondansetron INJ* 2 MG/ML VIAL IV PRN (17:56)
[2019-05-14] MEDS ORDERED: Acetaminophen TAB* 325 MG PO PRN (17:56)
[2019-05-14] MEDS ORDERED: Albuterol HFA INHALER* 8 gm MDI INH PRN (18:00)
[2019-05-14 18:21] LABS: C Reactive Protein 2.9 mg/L (<8.01)
[2019-05-14 19:23] LABS: Erythrocyte Sed Rate 20 mm/Hr (0-29)
[2019-05-14] MEDS ORDERED: Enoxaparin(*) 40 MG/0.4 ML SYR SUBCUT SCH (20:00)
[2019-05-14] MEDS: Oxybutynin TAB* 5 MG PO SCH (20:46)
[2019-05-14] MEDS: Metoprolol Tartrate TAB* 50 mg PO SCH (20:51)
[2019-05-14] MEDS ORDERED: DHA PO SCH (21:00)
[2019-05-14] MEDS ORDERED: Mometasone 220 MCG MDI INH SCH (21:00)
[2019-05-14] MEDS ORDERED: OMEGA PO SCH (21:00)
[2019-05-14] MEDS ORDERED: Enalapril TAB* 5 MG PO SCH (21:00)
[2019-05-14] MEDS ORDERED: FISH OIL PO SCH (21:00)
[2019-05-14] MEDS ORDERED: EPA PO SCH (21:00)
--- NOTE | 2019-05-14 21:24 | HP ---
CC: Dr. Vigil * MEDICINE HISTORY AND PHYSICAL: DATE OF ADMISSION: 05/14/19 PROVIDER: Maribel Youngblood NP ATTENDING PHYSICIAN: Dr. Rony Lopez * (dictated by Maribel Youngblood NP) . PRIMARY CARE PROVIDER: Dr. Jessi Vigil. CHIEF COMPLAINT: Chest pain. HISTORY OF PRESENT ILLNESS: Ms. Carrera is a 68-year-old female, who presented to the ER today with concern of anterior chest pain. She states that she woke up with pain in her chest around 8:30 a.m., she had difficulty getting comfortable, she continued to lie in bed and experienced stabbing pain all over her chest with pain radiating up into both sides of her jaw. She eventually had her family call 911 and then took 1 nitro with no relief. When the EMS arrived, they gave her a second nitro tablet and aspirin. She reports that this did not help. She was noted to have a blood pressure running of 60/30 by EMS and was also given a bolus of fluids to improve her pressure. In the ER, she was given an additional nitro as well as Toradol and [place] with no relief in her pain. She continues to rate her pain at 10/10. She reports some shortness of breath. She reports nausea and dizziness. Her blood pressure has remained soft during her time here and is currently noted to be 90/40. Again, she endorses the pain to be all over her chest, moving aggravates the pain, neck flexing aggravates the pain, flexion and extension of her upper extremities aggravates the pain. She cannot find any alleviating causes for the pain. She states that she had a similar type pain in 2005 when she had her heart attack. She does state that her grandson was in town this week and that she spent time with him and was moving about more than usual yesterday; she spent the time cleaning her house, which includes vacuuming, mopping, sweeping and cleaning mirrors. Denies any fever, chills, cough, abdominal pain, nausea, vomiting, diarrhea, dysuria, or weakness, was feeling well up until this morning. In the ER, the patient had labs done. Her troponins have remained unremarkable at 0.01. EKG shows no ST or T-wave changes. She does still have hypotension and does endorse some lightheadedness. Given these findings, Hospital Medicine was consulted for admission. PAST MEDICAL HISTORY: Includes coronary artery disease, hypertension, hypercholesterolemia. PAST SURGICAL HISTORY: Includes stent placement in 2006. She did have surgical fixation to her left upper extremity and left femur secondary to traumatic injury. She also has history of cholecystectomy. HOME MEDICATIONS: 1. Quetiapine 50 mg daily. 2. Sertraline 200 mg daily. 3. Pantoprazole 40 mg daily. 4. Oxybutynin 5 mg b.i.d. 5. [place]-3 fatty acids 1200 mg 2 capsules at bedtime. 6. Nitroglycerin 0.4 mg sublingual q.5 minutes p.r.n. 7. Metoprolol tartrate 50 mg b.i.d. 8. Levocetirizine 5 mg daily. 9. Fluticasone 2 puffs inhaled b.i.d. 10. Fluticasone nasal spray 2 sprays to both nares daily. 11. Enalapril 2.5 mg at bedtime. 12. Calcium/vitamin D3 one tab daily. 13. Atorvastatin 80 mg daily. 14. Aspirin 81 mg daily. 15. Albuterol inhaler 2 puffs inhaled q.4 hours p.r.n. ALLERGIES: Include IBUPROFEN which causes nausea and MORPHINE which causes vomiting. SOCIAL HISTORY: She is a former smoker, having quit over 30 years ago. She denies any alcohol or illicit drug use. She is a retired set up inspector. Her daughter, Emili Floyd, who is also a [employer] employee, is her surrogate decision maker and healthcare proxy. REVIEW OF SYSTEMS: A 12-point review of systems was completed. All pertinent positives and negatives as per HPI. PHYSICAL EXAMINATION GENERAL: This is a well-developed female seen lying in the ED stretcher, in no acute distress. VITAL SIGNS: Temperature 98.9, heart rate 60, respiratory rate 20, blood pressure 94/54, O2 saturation 96% on room air. HEENT: Head is atraumatic, normocephalic. Pupils are equal, round, and reactive to light and accommodation. Extraocular movements are intact. Sclerae are anicteric. Oral mucosa is moist. No oropharyngeal erythema or exudate. NECK: Supple with full range of motion. No JVD noted. No carotid bruits auscultated. LUNGS: Clear throughout. CHEST: Tender to palpation throughout extending across the sternum and both the upper and lower chest. CARDIAC: Normal S1, S2 heart sounds with regular rate and rhythm. Rate is slightly bradycardic, but regular. There are no murmurs appreciated. No peripheral edema noted. Distal pulses are 2+ and symmetric bilaterally in both the radial and pedal pulses. ABDOMEN: Soft, nontender, nondistended with normoactive bowel sounds. MUSCULOSKELETAL: There is no clubbing or cyanosis. She has full range of motion of all 4 extremities. Sensation is intact to light touch to all extremities. NEURO: Cranial nerves II through XII are grossly intact. No focal deficits noted. She is alert and oriented x3. SKIN: Appears grossly intact. DIAGNOSTIC STUDIES/LAB DATA: CBC: WBC 8.5, hemoglobin 12.1, hematocrit 36, platelet count 184. CMP: Sodium 138, potassium 4.4, chloride 107, carbon dioxide 25, BUN 17, creatinine 0.76, glucose 112, lactic acid 1.0, calcium 9.1, magnesium 2.0. Total bilirubin 0.5, AST 28, ALT 22, alk phos 81. Troponin 0.01 , BNP 58. TSH 3.63. EKG is as per above. Chest x-ray shows no active cardiopulmonary disease. Old medical records were reviewed. ASSESSMENT AND PLAN: This is a 68-year-old female with a past medical history significant for coronary artery disease, hypertension and hypercholesterolemia, who presents today with concern for atypical chest pain and also presents with hypotension that is likely secondary to medication. She will be admitted under observation. Plan is as follows: 1. Atypical chest wall pain. Her EKG is unremarkable. Her troponins are also unremarkable. Her chest pain is reproducible; however, it appears that she has not responded to any of the interventions given in the ER so far which do include 60 mg of Toradol, 2 doses of nitroglycerin and hydrocodone. Given that her pressures are relatively soft right now likely secondary to nitroglycerin, I will try a dose of IV Solu-Medrol. We will continue to monitor on telemetry overnight and consider other pain modalities as needed. She is unable to identify any activity that would have caused the pain that she is experiencing. Pain does not alleviate with positioning. She is afebrile. There is no leukocytosis to suggest other causes such as infection or pericarditis, but it does appear to be chest wall pain. We will continue to follow after receiving methylprednisolone and consider other options for her. 2. Hypotension. This was likely secondary to her nitroglycerin. She has not taken her blood pressure medications today, but she did receive multiple doses of nitroglycerin and was noted to have a 60/30 blood pressure in the ambulance. She does not show other signs of sepsis. Again, she is afebrile without leukocytosis and is without other complaint. We will continue with IV resuscitation and monitor on telemetry. Consider further evaluation if hypotension persists. 3. For history of coronary artery disease, we would recommend continuing on aspirin. Resume beta-amilcar when pressures are able to tolerate and when her heart rate has rebounded somewhat. She can continue her statin. 4. FEN: She is ordered a heart-healthy diet. 5. DVT prophylaxis: Subcu Lovenox. 6. Code status: She is a full code. TIME SPENT: Approximately 65 minutes was spent on this admission with more than half that time was spent [id number] with the patient obtaining history and physical, performing physical examination, and reviewing the plan of care. Plan of care was also reviewed with my attending, Dr. Lopez, who is in agreement. MARIBEL YOUNGBLOOD, RAMA [id number]/CPS #: [id number] CYNDEE
[2019-05-14] MEDS ORDERED: Ketorolac INJ* 30 MG/ML 1 ML VIAL IV PUSH PRN (21:42)
[2019-05-15 05:34] LABS: ABS Lymphocytes 0.6 10^3/ul (1.0-4.8); ABS Monocytes 0.5 10^3/ul (0-0.8); ABS Neutrophils 6.2 10^3/ul (1.5-7.7); Hematocrit 35 % (35-47); Hemoglobin 11.5 g/dL (12.0-16.0); Mean Corpuscular HGB Conc 33 g/dL (31-36); Mean Corpuscular Hemoglobin 31 pg (27-31); Mean Corpuscular Volume 93 fL (80-97); Mean Platelet Volume 9.2 fL (7.4-10.4); Platelet Count 167 10^3/uL (150-450); Red Blood Count 3.74 10^6 /uL (3.70-4.87); Red Cell Distribution Width 13 % (10-15); White Blood Count 7.3 10^3/uL (3.5-10.8)
[2019-05-15 05:48] LABS: BUN/Creatinine Ratio 21.5 (8-20); EGFR Non-African American 90.9 (>60); Potassium 4.6 mmol/L (3.5-5.0)
[2019-05-15] MEDS: Oxybutynin TAB* 5 MG PO SCH (08:07)
[2019-05-15] MEDS: Metoprolol Tartrate TAB* 50 mg PO SCH (08:07)
[2019-05-15] MEDS ORDERED: Pantoprazole TAB * 40 MG TAB PO SCH (09:00)
[2019-05-15] MEDS ORDERED: Fluticasone NASAL SPRAY 50MCG* 16 gm SPRAY BTL BOTH NARES SCH (09:00)
[2019-05-15] MEDS ORDERED: Calcium/Vitamin D TAB 250/125* TAB PO SCH (09:00)
[2019-05-15] MEDS ORDERED: Influenza VAC *QUAD* 2019-20* 0.5 ML SYRINGE IM ONE (09:00)
[2019-05-15] MEDS ORDERED: Atorvastatin* 80 MG TAB PO SCH (09:00)
[2019-05-15] MEDS ORDERED: Aspirin EC TAB* 81 MG TAB.EC PO SCH (09:00)
[2019-05-15] MEDS ORDERED: QUEtiapine TAB* 25 MG PO SCH (09:00)
[2019-05-15] MEDS ORDERED: Sertraline* 100 MG TAB PO SCH (09:00)
[2019-05-15 10:08] VITALS: BP 105/57
[2019-05-15] MEDS ORDERED: Cetirizine* 10 MG TAB PO SCH (18:00)
--- NOTE | 2019-05-15 20:49 | DS ---
CC: Dr. Jessi Vigil * DISCHARGE SUMMARY: DATE OF ADMISSION: 05/14/19 DATE OF DISCHARGE: 05/15/19 PRIMARY CARE PROVIDER: Jessi Vigil MD. ATTENDING PHYSICIAN: Alla Raman MD.* (DICTATED BY MARTI AHUMADA NP) PRIMARY DIAGNOSES: 1. Chest pain, suspect musculoskeletal. 2. Hypotension. SECONDARY DIAGNOSES: 1. Coronary artery disease. 2. Hyperlipidemia. STUDIES WHILE IN THE HOSPITAL: 1. EKG on 05/14/19 showed normal sinus rhythm with a rate of 60, no ST changes. QTc 399. 2. EKG on 05/14/19 showed normal sinus rhythm with a rate of 68. QTc 416. 3. Chest x-ray on 05/14/19, no active cardiopulmonary disease. HISTORY OF PRESENT ILLNESS AND HOSPITAL COURSE: Ms. Carrera is a 68-year-old female with past medical history of coronary artery disease, hypertension, hyperlipidemia, GERD, and depression who presented to the emergency room on with complaints of chest pain. Please see the history and physical by Maggie De La Rosa NP, for complete summary of the events leading up to this hospitalization. In short, the patient does have a history of coronary artery disease with 1 stent that was placed in 2005. On the day of presentation, she awoke with pain in her chest, which encompassed her entire chest radiating up into both jaws. She took a nitro with no relief and so presented to the emergency room. She was given a second nitro on route to the hospital. In the emergency room, she was noted to have a blood pressure of 60/30 and was given IV fluids with improvement. She did note that she had been spending more time with her grandson whom she had been picking up frequently. In the emergency room, chest pain was noted to be reproducible though because of her cardiac history, she was admitted by the hospitalist service. The patient had an uneventful night. She continued to have pain though noted significant relief after 1 dose of methylprednisolone and multiple doses of Toradol. Telemetry overnight was unremarkable. The patient did have 3 troponins, which were flat at 0.01. No other significant lab abnormalities. This morning, she reports a mild sense of pressure in her right anterior chest. This is worse when she is pulling herself up in bed using the side rails and worse with deep breathing. She did report significant improvement in pain overnight after a dose of Toradol. At this point, it seems most likely that the patient's chest pain was musculoskeletal in nature, possibly costochondritis. Again, her pain is reproducible with movement at this point though has improved significantly. She did have a negative stress test back in December, so at this point a repeat stress test was not indicated and there were no obvious cardiac abnormalities or concerns at this point. PHYSICAL EXAMINATION: On exam, the patient has no focal neurological deficits. She is alert and oriented x4. Her heart has a regular rate and rhythm without murmurs, rubs, or gallops. Lungs are clear to auscultation without rhonchi, wheezes, or rubs. There is no edema. Physical exam was otherwise benign. Ms. Carrera is stable for discharge today and most recent vital signs are as follows: Temp 98.0, heart rate 62, respiratory rate 16, oxygen saturation 97% on room air, blood pressure 105/67. DISCHARGE MEDICATIONS: New medications: 1. Ibuprofen 600 mg p.o. q.8 hours p.r.n. pain x5 days. Changed Medications: 1. Metoprolol tartrate 25 mg p.o. b.i.d. (previously was 50 mg b.i.d.) Continued Medications: 1. Albuterol MDI 2 puffs q.4 hours p.r.n. shortness of breath, wheezing. 2. Aspirin 81 mg p.o. daily. 3. Atorvastatin 80 mg p.o. daily. 4. Calcium 600 plus vitamin D one tab p.o. daily. 5. Fluticasone 110 mcg 2 puffs b.i.d. 6. Levocetirizine 5 mg p.o. daily. 7. Nitro 0.4 mg sublingual q.5 minutes p.r.n. angina. 8. Fish oil 2 caps p.o. at bedtime. 9. Oxybutynin 5 mg p.o. b.i.d. 10. Pantoprazole 40 mg p.o. daily. 11. Seroquel 50 mg p.o. daily. 12. Sertraline 200 mg p.o. daily. Discontinued Medications: 1. Enalapril. DISCHARGE PLAN: Ms. Carrera will be discharged home. Activity will be as tolerated. Diet will be heart healthy. Medications are noted above. I have sent a new prescription for ibuprofen and I have advised the patient that she can take this for 5 days at this point though should not be on ibuprofen alf due to its cardiovascular effects. Although at this point the ibuprofen will help with this suspected musculoskeletal pain. I have stopped her enalapril due to continued soft blood pressures while in the hospital. Systolic was running in the 90s overnight and is in the low 100s this morning, so I have also decreased her metoprolol dosing though at this point I am keeping her on metoprolol to avoid any beta-amilcar rebound hypertension and because of her history of coronary artery disease. She can continue her other usual medications as noted above. She will need to follow up with her primary care provider in the next 4 to 7 days and I will defer to her PCP whether or not the patient should follow up with her [facility] as she did just see her [facility] last week. The patient should return to the emergency room or nearest hospital for any worsening of symptoms, shortness of breath, lightheadedness, dizziness, chest discomfort, high fevers, chills, night sweats , loss of consciousness, or any other worrisome signs or symptoms. DISCHARGE CONDITION: Stable. DISCHARGE DISPOSITION: Home. This is a summarized report of a complex medical history and hospital stay. For further details, please see the entire medical record. TIME SPENT: Approximately 45 minutes was spent on this discharge. MARTI AHUMADA NP [id number]/[id number] #: [id number] [place]
== END 2019-05-15 12:20 | disposition home or self-care (01) ==
LOC: ED 11:12 → MEDTELE 17:45
PROVIDERS: ADMIT Internal Medicine; ATTEND Internal Medicine
DX: R07.9 Chest pain, unspecified (principal); E03.9 Hypothyroidism, unspecified; I25.10 Atherosclerotic heart disease of native coronary artery without angina pectoris; E78.5 Hyperlipidemia, unspecified; Z79.899 Other long term (current) drug therapy; K21.9 Gastro-esophageal reflux disease without esophagitis; E78.00 Pure hypercholesterolemia, unspecified; Z79.82 Long term (current) use of aspirin; Z87.891 Personal history of nicotine dependence
CPT/HCPCS: 36415; 71045; 80048; 80053; 81003; 81015; 82553; 83605; 83735; 83880; 84443; 84484; 85025; 85610; 85652; 85730; 86140; 87086; 90471; 90686; 93005; 96361; 96372; 96374; 96375; 96376; 99284; A9270-GY; G0008; G0378; J1650; J1885; J2930